=== PATIENT | male | born 1955 | race Hispanic/Latino ===

== ENCOUNTER → 2021-03-14 | Outpatient (CLI) | payer OTHER ==
[~2021-03-14] MED LIST: ATOR10 PO; ATOR20TA65 PO; HYDR1POW19 MC; LISI40TA9 PO; METF-444 PO; METF-445 PO; METO25TA3 PO; NITR0.4T SL; RANI150T7 PO; SERT-439 PO; TAMS0.4C32 PO
== END | disposition home or self-care (01) ==
LOC: RAH 12:16
PROVIDERS: ATTEND Nurse Practitioner Family
DX: M47.27 Other spondylosis with radiculopathy, lumbosacral region (principal); E88.2 Lipomatosis, not elsewhere classified
CPT/HCPCS: 72148

== ENCOUNTER 2023-06-21 13:12 | Emergency (ER) | payer OTHER, MEDICARE ==
[~2023-06-21] VITALS: Ht 167.6 cm; Wt 116.6 kg
[2023-06-21 13:34] LABS: BASOPHILS # (AUTO) 0.07 K/uL (0.00-0.20); BASOPHILS % (AUTO) 0.8 % (0.0-5.0); EOSINOPHILS # (AUTO) 0.41 K/uL (0.00-0.70); EOSINOPHILS % (AUTO) 4.4 % (0.0-8.0); HEMATOCRIT 40.3 % (42-54); IMMATURE GRANULOCYTE ABSOLUTE 0.03 K/uL (0-1); LYMPHOCYTES # (AUTO) 2.1 K/uL (1.0-4.8); LYMPHOCYTES % (AUTO) 22.2 % (21.0-51.0); MEAN CORPUSCULAR HEMOGLOBIN 29.3 pg (27.0-33.0); MEAN CORPUSCULAR HGB CONC 33.3 g/dL (32.0-36.0); MEAN CORPUSCULAR VOLUME 88.2 fL (79-99); MONOCYTES # (AUTO) 0.9 K/uL (0.1-1.0); MONOCYTES % (AUTO) 9.9 % (3.0-13.0); NEUTROPHILS # (AUTO) 5.8 K/uL (1.8-7.7); NEUTROPHILS % (AUTO) 62.4 % (40.0-77.0); PLATELET COUNT (AUTO) 187 K/uL (130-400); RED BLOOD CELL COUNT(AUTO) 4.57 MIL/uL (4.50-6.20); RED CELL DISTRIBUTION WIDTH 12.5 % (11.0-15.5); WHITE BLOOD COUNT (AUTO) 9.2 K/uL (4.8-10.8)
[2023-06-21 13:42] LABS: CREATININE 1.1 mg/dL (0.5-1.5); POTASSIUM 4.4 mmol/L (3.5-5.1)
[2023-06-21 13:47] LABS: ALBUMIN 3.5 g/dL (3.5-5.0); BILIRUBIN,TOTAL 0.5 mg/dL (0.2-1.0); TOTAL PROTEIN, SERUM 7.2 g/dL (6.0-8.3)
[2023-06-21 14:10] LABS: APPEARANCE,URINE CLEAR (CLEAR); BILIRUBIN,URINE NEGATIVE (NEGATIVE); COLOR,URINE YELLOW (YELLOW); GLUCOSE, URINE (UA) NEGATIVE (NEGATIVE); KETONES,URINE NEGATIVE (NEGATIVE); LEUKOCYTE ESTERASE ,URINE NEGATIVE Leu/uL (NEGATIVE); NITRATE,URINE NEGATIVE (NEGATIVE); OCCULT BLOOD,URINE NEGATIVE (NEGATIVE); PH,URINE 5.5 (5.0-8.0); PROTEIN,URINE NEGATIVE (NEGATIVE); UROBILINOGEN,URINE 0.2 mg/dL (0.2-1.0)
[2023-06-21 14:11] LABS: ADD UA MICROSCOPIC NO
[2023-06-21] MEDS ORDERED: CEFTRIAXONE 1G VIAL IVPB ONE (14:30)
[2023-06-21] MEDS ORDERED: DOXY-469 PO (14:32)
[2023-06-21 14:55] VITALS: BP 143/79; PULSE 78; RESP 18; O2SAT 98
== END 2023-06-21 15:33 | disposition home or self-care (01) ==
LOC: EDH 13:12
DX: N45.1 Epididymitis (principal); I10 Essential (primary) hypertension; E11.9 Type 2 diabetes mellitus without complications; E78.00 Pure hypercholesterolemia, unspecified; N43.3 Hydrocele, unspecified; Z79.899 Other long term (current) drug therapy; Z90.49 Acquired absence of other specified parts of digestive tract
CPT/HCPCS: 99285; 96365; 80053; 85025; 83605; 81003; 36415; 76870; J0696

== ENCOUNTER → 2024-05-06 | Outpatient (CLI) | payer OTHER, MEDICARE ==
[~2024-05-06] MED LIST changes: +DOXY100C61 PO
== END | disposition home or self-care (01) ==
LOC: RAH 10:42
PROVIDERS: ATTEND Internal Medicine
DX: R10.10 Upper abdominal pain, unspecified (principal); R14.0 Abdominal distension (gaseous); R11.0 Nausea
CPT/HCPCS: 78264; A9541

== ENCOUNTER 2025-05-31 13:27 | Emergency (ER) | payer OTHER, MEDICAID ==
[~2025-05-31] VITALS: Ht 170.2 cm; Wt 126.1 kg
[~2025-05-31 13:27] MED LIST changes: +DOXY-466 PO; -DOXY100C61 PO; +LISI40TA15 PO; -LISI40TA9 PO
[2025-05-31] MEDS: 0.9%NACL 1000ML 1,000 ML IV ONE (13:54)
[2025-05-31 14:10] LABS: IMMATURE GRANULOCYTE ABSOLUTE 0.07 K/uL (0-1); NUCLEATED RED BLOOD CELLS 0.0 % (0.0-0.19); PLATELET COUNT (AUTO) 178 K/uL (130-400); RED BLOOD CELL COUNT(AUTO) 4.17 MIL/uL (4.50-6.20); RED CELL DISTRIBUTION WIDTH 12.8 % (11.0-15.5); WHITE BLOOD COUNT (AUTO) 8.8 K/uL (4.8-10.8)
[2025-05-31 14:22] LABS: CREATININE 1.0 mg/dL (0.5-1.3); GLOMERULAR FILTR. RATE CALC 81.0 mL/min (>90); GLUCOSE,RANDOM 93.0 mg/dL (70-105); SODIUM SERUM 135.0 mmol/L (136-145); UREA NITROGEN, BLOOD 24.0 mg/dL (7-18)
[2025-05-31] MEDS ORDERED: IOHEXOL-350 75 ML VIAL IV ONE (14:31)
--- NOTE | 2025-05-31 15:18 | ERN ---
ED Note History of Present Illness Stated Complaint: RECTAL BLEEDING Chief Complaint: Rectal Bleed Time Seen by MD: 13:31 Time Seen by Midlevel: 13:31 Dictation: 70-year-old male who presents to the ED for evaluation rectal pain. Reports he has a history of hemorrhoids for the past few months has been seeing a specialist. Reports he had a colonoscopy done few months ago was told he had polyps that were removed and will has been given symptomatic treatment for the hemorrhoids. He reports they prescribed creams and has been helping and continues with pain. Reports some rectal bleeding occasionally getting bowel movements when he wipes. Allergies: Uncoded Allergies: NKDA (Allergy, Unknown, 06/18/14) NKDA Home Meds Active Scripts Doxycycline Monohydrate (Doxycycline Monohydrate) 100 Mg Capsule, 100 MG PO BID for 10 Days, #20 CAP Prov:MITZI GELLER MD 06/21/23 Reported Medications Atorvastatin Calcium (Atorvastatin Calcium) 20 Mg Tablet, 20 MG PO HS, TAB 11/08/16 Lisinopril (Lisinopril) 40 Mg Tablet, 40 MG PO DAILY, TAB 11/08/16 Sertraline HCl (Sertraline HCl) 50 Mg Tablet, 50 MG PO DAILY, TAB 11/08/16 Metoprolol Succinate (Toprol Xl) 25 Mg Tab.er.24h, 25 MG PO BID, TAB 11/08/16 Metformin HCl (Metformin HCl) 850 Mg Tablet, 850 MG PO TIDMEALS, TAB 11/08/16 Ranitidine HCl (Ranitidine HCl) 150 Mg Tablet, 150 MG PO DAILY, #1 TAB 06/18/14 Nitroglycerin (Nitrostat) 0.4 Mg Tab.subl, 0.4 MG SL STAT PRN for CHEST PAIN, #1 TAB.SL 06/18/14 Metformin HCl (Metformin HCl) 500 Mg Tablet, 500 MG PO AM, TAB 06/18/14 Tamsulosin HCl (Tamsulosin HCl) 0.4 Mg Cap.er.24h, 0.4 MG PO AM, CAPSULE. 06/18/14 Hydrochlorothiazide (Hydrochlorothiazide) 25 Gm Powder, 25 GM MC DAILY, APPL 06/18/14 Atorvastatin Calcium (LIPITOR) 10 Mg Tablet, 10 MG PO HS, TAB 06/18/14 Lisinopril (Lisinopril) 40 Mg Tablet, 40 MG PO DAILY, TAB 06/18/14 Metoprolol Succinate (Toprol Xl) 25 Mg Tab.er.24h, 25 MG PO DAILY, TAB 06/18/14 Past Medical History Past Medical History: Diabetes-Type II, High Cholesterol, Hypertension Surgical History: Cholecystectomy RN Note Reviewed/Agreed w/PFSH: Yes Review of System Dictation Constitutional: Negative for fever,chills, and weight loss Eyes: Negative for injury, pain,redness, and discharge ENT: Negative for injury,pain or swelling Cardiovascular: Negative for chest pain, palpitations, and edema Respiratory: Negative for shortness of breath, cough, and wheezing, Abdomen/GI: Negative for abdominal pain, nausea, vomiting, diarrhea, and constipation Back: Negative for injury and pain : Negative for injury, bleeding and discharge MS/Extremity: Negative for injury and deformity Skin: Negative for rash, and discoloration Neuro: Negative for headache, weakness, numbness, tingling, and seizure Psych: Negative for suicide ideation, homicidal ideation, and hallucinations Review of Systems: was completed Initial Vital Sign VS Vital Signs Date Time Temp Pulse Resp B/P (MAP) Pulse Ox O2 Delivery O2 Flow Rate FiO2 05/31/25 13:28 98.2 63 18 158/68 98 Room Air 05/31/25 14:12 0 21 Physical Exam Dictation General: awake, alert, NAD Head/Face: Normocephalic, atraumatic Eyes: PERRL, EOMI, vision at baseline ENT: oral cavity clear, TMs clear, no signs of infection Neck: Trachea midline, supple, no nuchal rigidity Cardiovascular: RRR, normal S1/S2, No MRGs, no JVD Respiratory: CTAB, no respiratory distress, No rales or wheezes Abdomen: Soft, non-tender, non-distended, normal bowel sounds, no guarding or rebound.external hemorrhoids noted, no anal fissure, no thrombosed hemorrhoid Skin: Warm, dry, normal turgor, no rash MS/Extremity: Pulses equal, no cyanosis, neurovascular intact, FROM Neuro: COAx4, GCS 15, strength 5/5, CN 2-12 intact, normal cerebellar exam, normal gait, Psych: Normal behavior, mood, and affect normal Results (Laboratory/Radiology) Laboratory/Radiology Laboratory Tests Test 05/31/25 14:02 05/31/25 15:48 White Blood Count 8.8 K/uL (4.8-10.8) Red Blood Count 4.17 MIL/uL (4.50-6.20) L Hemoglobin 12.9 g/dL (14.0-18.0) L Hematocrit 36.0 % (42-54) L Mean Corpuscular Volume 86.3 fL (79-99) Mean Corpuscular Hemoglobin 30.9 pg (27.0-33.0) Mean Corpuscular Hemoglobin Concent 35.8 g/dL (32.0-36.0) Red Cell Distribution Width 12.8 % (11.0-15.5) Platelet Count 178 K/uL (130-400) Mean Platelet Volume 10.4 fL (7.5-10.5) Immature Granulocyte % (Auto) 0.8 % (0-1) Neutrophils (%) (Auto) 62.1 % (40.0-77.0) Lymphocytes (%) (Auto) 24.3 % (21.0-51.0) Monocytes (%) (Auto) 10.0 % (3.0-13.0) Eosinophils (%) (Auto) 2.6 % (0.0-8.0) Basophils (%) (Auto) 0.2 % (0.0-5.0) Neutrophils # (Auto) 5.4 K/uL (1.8-7.7) Lymphocytes # (Auto) 2.1 K/uL (1.0-4.8) Monocytes # (Auto) 0.9 K/uL (0.1-1.0) Eosinophils # (Auto) 0.23 K/uL (0.00-0.70) Basophils # (Auto) 0.02 K/uL (0.00-0.20) Absolute Immature Granulocyte (auto 0.07 K/uL (0-1) Nucleated Red Blood Cells 0.0 % (0.0-0.19) Sodium Level 135 mmol/L (136-145) L Potassium Level 4.7 mmol/L (3.5-5.1) Chloride Level 102 mmol/L (101-111) Carbon Dioxide Level 26 mmol/L (21-32) Blood Urea Nitrogen 24 mg/dL (7-18) H Creatinine 1.0 mg/dL (0.5-1.3) Glomerular Filtration Rate Calc 81 mL/min (>90) Random Glucose 93 mg/dL (70-105) Total Calcium 8.5 mg/dL (8.5-10.1) Lipase 100 U/L (16-77) H Urine Color LIGHT-YELLOW (YELLOW) Urine Appearance CLEAR (CLEAR) Urine pH 6.0 (5.0-8.0) Urine Specific Williams 1.035 (1.001-1.031) Urine Protein NEGATIVE mg/dL (NEGATIVE) Urine Glucose (UA) NEGATIVE mg/dL (NEGATIVE) Urine Ketones NEGATIVE mg/dL (NEGATIVE) Urine Occult Blood NEGATIVE (NEGATIVE) Urine Nitrate NEGATIVE (NEGATIVE) Urine Bilirubin NEGATIVE mg/dL (NEGATIVE) Urine Urobilinogen 0.2 mg/dL (0.2-1.0) Urine Leukocyte Esterase NEGATIVE Kimmie/uL Labs Reviewed?: Yes CT Scan Comment: PATIENT: DASH MIMS MR#: [id number] : 1955 SEX: M AGE: 70 LOCATION: [facility] ORDER [id number] STATUS: [facility] REPORT#: [id number] SERVICE [id number] REASON: Abdominal Pain ORDERING PHYSICIAN: YASMINE KUMAR PROCEDURE: ABD PEL W - CT ABDOMEN/PELVIS W/CONTRAST EXAM: CT Abdomen and Pelvis with IV contrast CLINICAL HISTORY: Abdominal Pain TECHNIQUE: Axial computed tomography images of the abdomen and pelvis with intravenous contrast. CT scan performed according to ALARA. Automated exposure control used during exam. CONTRAST: with intravenous contrast. COMPARISON: Radiograph dated June 28, 2012 FINDINGS: Lung bases are clear. Cirrhotic hepatic morphology. Prior cholecystectomy. No focal hepatic abnormality or intrahepatic biliary ductal dilatation. Bilateral adrenal glands, and pancreas are unremarkable. There is mild bilateral perinephric fat stranding that may reflect renal parenchymal disease, recommend correlation with laboratory parameters. There is no renal calculus or hydronephrosis. Splenic calcifications are in keeping with a prior granulomatous infection. Colonic diverticulosis without evidence for diverticulitis. Bowel loops are normal in caliber without evidence of obstruction, ileus, or obvious bowel wall thickening. The appendix is normal. Bladder is underdistended; however, is otherwise unremarkable. Prostate and seminal vesicles are normal in caliber. There is no ascites or lymphadenopathy. Opacified abdominal and pelvic vessels are patent. Atherosclerotic vascular calcifications are noted. Incidental lipoma within the left hip adductor musculature. Mild edema within the retrospinal soft tissues at the lumbar level. There is no acute or suspicious osseous abnormality. IMPRESSION: No acute intra-abdominal or pelvic abnormality. Please above for details and recommendations. /[place] DICTATED BY: ALYSSA JACOBSEN Jr., MD DATE: 05/31/251640 ELECTRONICALLY SIGNED BY: ALYSSA JACOBSEN Jr., MD DATE: 05/31/251640 ED Course ED Course Orders Procedure Category Date Status Time Cbc With Differential LAB 05/31/25 Complete 13:36 Urinalysis Profile LAB 05/31/25 Complete 13:36 Occult Blood Stool LAB 05/31/25 Logged Single Only 13:36 Ct Abdomen/Pelvis CT 05/31/25 Resulted W/Contrast 13:36 0.9%Nacl 1000ml (Ns PHA 05/31/25 Complete 1000ml) 14:00 Morphine 4mg Syg PHA 05/31/25 Complete (Morphine 4mg Syg) 14:00 Ondansetron 4mg Inj PHA 05/31/25 Complete (Zofran 4mg Inj) 14:00 Lipase LAB 05/31/25 Complete 13:36 Basic Metabolic Panel LAB 05/31/25 Complete 13:36 Iohexol (Omnipaque) PHA 05/31/25 Complete 14:31 Current Medications Medications (Trade) Dose Ordered Sig/Sven Route PRN Reason Start Time Stop Time Status Last Admin Dose Admin Iohexol (Omnipaque) 75 ml STK-MED ONCE IV 05/31/25 14:31 05/31/25 14:34 DC Morphine Sulfate (morPHINE 4MG SYG) 4 mg ONCE ONCE IVP 05/31/25 14:00 05/31/25 14:01 DC 05/31/25 14:12 Ondansetron HCl (zoFRAN 4MG INJ) 4 mg ONCE ONCE IVP 05/31/25 14:00 05/31/25 14:01 DC 05/31/25 13:54 Sodium Chloride 1,000 ml @ 0 mls/hr ONCE ONCE IV 05/31/25 14:00 05/31/25 14:01 DC 05/31/25 13:54 Vital Signs Date Time Temp Pulse Resp B/P (MAP) Pulse Ox O2 Delivery O2 Flow Rate FiO2 05/31/25 14:12 98.2 60 20 162/72 97 Room Air* 0 21 05/31/25 13:28 98.2 63 18 158/68 98 Room Air Medical Decision Making MDM MDM: DIFFERENTIAL DIAGNOSIS: EXTERNAL HEMORRHOIDS, ACUTE DIVERTICULOSIS, DI VERTICULITIS, ANEMIA RATIONALE: TESTS CONSIDERED AND ORDERED SECONDARY TO SHARED DECISION MAKING INCLUDE: PREVIOUS OUTSIDE RECORDS REVIEWED: OLD ER VISITS. MEDICATIONS-PER MEDICATION RECONCILIATION NEED FOR HOSPITALIZATION: PATIENT DOES NOT MEET CRITERIA FOR HOSPITALIZATION. NEED FOR EMERGENCY MAJOR/MINOR SURGERY: NO PATIENT'S PRIOR EXTERNAL MEDICAL RECORDS FROM OTHER ER VISITS WERE REVIEWED BY ME INDICATED. PRIOR TESTING AND RESULTS FROM PREVIOUS VISITS WERE REVIEWED. PRIOR TESTS WERE TAKEN INTO ACCOUNT WITH MEDICAL DECISION MAKING AND RESOURCE UTILIZATION, INDEPENDENT HISTORIAN/HISTORIANS WERE USED TO OBTAIN COMPLETE MEDICAL HISTORY. I INDEPENDENTLY INTERPRETED THE TEST THAT WERE PERFORMED, RESULTS WERE REVIEWED BY ME AND CONSIDERED FINDINGS ON RADIOLOGY IF ORDERED. MEDICAL MANAGEMENT AND EXAMINATION INTERPRETATION DISCUSSIONS WERE HAD BY ME WITH OTHER QUALIFIED HEALTHCARE PROFESSIONALS INDICATED FOR THE PATIENT'S CARE. PATIENT WITH A EXTERNAL HEMORRHOIDS, NONTHROMBOSED. NO ANAL FISSURE, OR ABS CESS. HEMOGLOBIN 12.9. NO ELECTROLYTE ABNORMALITIES. CT SCAN ABDOMEN AND PELVIS WITH CONTRAST SHOWS COLONIC DIVERTICULOSIS WITH PATIENT AND DAUGHTER STATE THEY ARE ALREADY AWARE OF. DID EDUCATED ON POSSIBLE CIRRHOTIC LIVER MORPHOLOGY AND RECOMMENDED FOLLOW UP WITH PCP. PATIENT AND DAUGHTER DENY ALCOHOL USE. CT SCAN DOES NOT SHOW ANY EVIDENCE OF DIVERTICULITIS. OTHERWISE NORMAL CT SCAN ABDOMEN AND PELVIS. PATIENT WILL BE DISCHARGED HOME RECOMMENDED FOLLOW UP WITH HIS [employer]ER AND EDUCATED SYMPTOMATIC TREATMENT FOR EXTERNAL HEMORRHOIDS. RETURN PRECAUTIONS DISCUSSED WITH PATIENT AND FAMILY MEMBER. THEY VERBALIZED UNDERSTANDING, AGREED WITH PLAN, AND ALL QUESTIONS WERE ANSWERED AT THIS TIME. DX & DISP Disposition: Discharge Departure Impression: Primary Impression: Hemorrhoids Additional Impression: Diverticula of colon Condition: Stable Additional Instructions: DISCHARGE HOME. REST. FOLLOW UP WITH PRIMARY CARE IN 24 HOURS AND/OR YOUR [employer] FOR REPEAT COLONOSCOPY AND FOLLOW UP RETURN TO THE ER FOR ANY ACUTE CHANGE. PATIENT WAS ALSO ADVISED TO FOLLOW-UP WITH PRIMARY CARE PHYSICIAN IN 1 TO 2 DAYS FOR CONTINUED MONITORING. ALL INSTRUCTIONS WERE GIVEN TO LAYMANS TERM AND PATIENT AGREEABLE TO DISCHARGE AND PROPER FOLLOW-UP. Referrals: JENA TORRES (PCP) I have reviewed the case, and I agree with, Diagnosis and Plan YASMINE KUMAR May 31, 2025 15:18
--- NOTE | 2025-05-31 15:42 | HMCIMG ---
EXAM: CT Abdomen and Pelvis with IV contrast CLINICAL HISTORY: Abdominal Pain TECHNIQUE: Axial computed tomography images of the abdomen and pelvis with intravenous contrast. CT scan performed according to ALARA. Automated exposure control used during exam. CONTRAST: with intravenous contrast. COMPARISON: Radiograph dated June 28, 2012 FINDINGS: Lung bases are clear. Cirrhotic hepatic morphology. Prior cholecystectomy. No focal hepatic abnormality or intrahepatic biliary ductal dilatation. Bilateral adrenal glands, and pancreas are unremarkable. There is mild bilateral perinephric fat stranding that may reflect renal parenchymal disease, recommend correlation with laboratory parameters. There is no renal calculus or hydronephrosis. Splenic calcifications are in keeping with a prior granulomatous infection. Colonic diverticulosis without evidence for diverticulitis. Bowel loops are normal in caliber without evidence of obstruction, ileus, or obvious bowel wall thickening. The appendix is normal. Bladder is underdistended; however, is otherwise unremarkable. Prostate and seminal vesicles are normal in caliber. There is no ascites or lymphadenopathy. Opacified abdominal and pelvic vessels are patent. Atherosclerotic vascular calcifications are noted. Incidental lipoma within the left hip adductor musculature. Mild edema within the retrospinal soft tissues at the lumbar level. There is no acute or suspicious osseous abnormality. IMPRESSION: No acute intra-abdominal or pelvic abnormality. Please above for details and recommendations. /[place]
[2025-05-31 15:58] LABS: APPEARANCE,URINE CLEAR (CLEAR); GLUCOSE, URINE (UA) NEGATIVE (NEGATIVE); LEUKOCYTE ESTERASE ,URINE NEGATIVE Leu/uL (NEGATIVE); NITRATE,URINE NEGATIVE (NEGATIVE); OCCULT BLOOD,URINE NEGATIVE (NEGATIVE)
[2025-05-31 15:59] LABS: ADD UA MICROSCOPIC NO
[2025-05-31 16:20] VITALS: BP 157/68; PULSE 66; RESP 18; TEMP 98.2; O2SAT 98
== END 2025-05-31 16:33 | disposition home or self-care (01) ==
LOC: EDH 13:27
DX: K64.9 Unspecified hemorrhoids (principal); K57.30 Diverticulosis of large intestine without perforation or abscess without bleeding; E11.9 Type 2 diabetes mellitus without complications; E78.00 Pure hypercholesterolemia, unspecified; I10 Essential (primary) hypertension; Z79.899 Other long term (current) drug therapy; Z90.49 Acquired absence of other specified parts of digestive tract
CPT/HCPCS: 99285; 74177; 96374; 96375; 80048; 83690; 85025; 81003; 36415; J2405; J2270; Q9967

== ENCOUNTER 2025-07-02 08:29 | Observation (INO) | payer OTHER, MEDICAID ==
[~2025-07-02] VITALS: Ht 170.2 cm; Wt 124.7 kg
--- NOTE | 2025-07-02 08:38 | EKG ---
[facility] Test Date: 2025-07-02 Test Time: 08:30:07 Pat Name: DASH MIMS Department: EDH Room: ED Gender: M Emt/Paramedic: [id number] : 1955 Requested By: VIC RODRIGUEZ Order Number: [id number] Reading MD: Brennan Mora Measurements Intervals [place] Rate: 79 P: 40 ND: 173 QRS: -49 QRSD: 86 T: 46 QT: 375 QTc: 431 Interpretive Statements Sinus rhythm Inferior infarct, old Compared to ECG 11/08/2016 19:30:19 No significant changes Electronically Signed On 07-02-2025 13:40:36 CDT by Brennan Mora Please click the below link to view image of tracing.
[2025-07-02 08:52] LABS: IMMATURE GRANULOCYTE ABSOLUTE 0.04 K/uL (0-1); NUCLEATED RED BLOOD CELLS 0.0 % (0.0-0.19); PLATELET COUNT (AUTO) 214 K/uL (130-400); RED BLOOD CELL COUNT(AUTO) 4.23 MIL/uL (4.50-6.20); RED CELL DISTRIBUTION WIDTH 12.8 % (11.0-15.5); WHITE BLOOD COUNT (AUTO) 9.1 K/uL (4.8-10.8)
[2025-07-02 09:02] LABS: APPEARANCE,URINE CLOUDY (CLEAR); GLUCOSE, URINE (UA) 50 mg/dL (NEGATIVE); LEUKOCYTE ESTERASE ,URINE 25 Leu/uL (NEGATIVE); NITRATE,URINE NEGATIVE (NEGATIVE); OCCULT BLOOD,URINE NEGATIVE (NEGATIVE)
[2025-07-02 09:04] LABS: ADD UA MICROSCOPIC YES
[2025-07-02 09:05] LABS: CREATININE 1.2 mg/dL (0.5-1.3); GLOMERULAR FILTR. RATE CALC 65.0 mL/min (>90); GLUCOSE,RANDOM 193.0 mg/dL (70-105); SODIUM SERUM 135.0 mmol/L (136-145); UREA NITROGEN, BLOOD 18.0 mg/dL (7-18)
[2025-07-02 09:11] LABS: ASPARTATE AMINOTRANSFERASE 34.0 U/L (10-37); CREATINE KINASE, TOTAL 84.0 U/L (21-232); TOTAL PROTEIN, SERUM 7.1 g/dL (6.0-8.3)
[2025-07-02 09:16] LABS: SQUAMOUS EPITHELIAL CELL,UR RARE /HPF (0-2)
--- NOTE | 2025-07-02 10:54 | HMCIMG ---
EXAM: CR Chest, 1 View. CLINICAL HISTORY: cp COMPARISON: 11/08/16 9:08 EST CR - CHEST 1VW FINDINGS: LUNGS: There is no mass, infiltrate, or acute pulmonary abnormality. PLEURAL SPACES: No pleural effusion or pneumothorax. MEDIASTINUM: The cardiomediastinal silhouette is within normal limits. BONES: No aggressive appearing osseous lesion seen. IMPRESSION: No acute cardiopulmonary pathology is evident. /[place]
[2025-07-02] MEDS: ASPIRIN 325MG TAB PO ONE (11:22)
[2025-07-02] MEDS: NITROGLYCERIN 1GM OINT 1 INCH/1GM TD ONE (11:22)
--- NOTE | 2025-07-02 11:24 | ERN ---
ED Note History of Present Illness Stated Complaint: CHEST PAIN / BACK PAIN Chief Complaint: Chest Pain Time Seen by MD: 08:34 Dictation: 70-year-old male presenting to the emergency department with intermittent chest pain since last night history of hypertension and diabetes does see heart doctor unknown his exact cardiac history. Does report he still has chest discomfort 01/26 Allergies: Coded Allergies: No Known Drug Allergies (Unverified Allergy, Unknown, 07/02/25) Uncoded Allergies: NKDA (Allergy, Unknown, 06/18/14) NKDA Home Meds Active Scripts Doxycycline Monohydrate (Doxycycline Monohydrate) 100 Mg Capsule, 100 MG PO BID for 10 Days, #20 CAP Prov:MITZI GELLER MD 06/21/23 Reported Medications Atorvastatin Calcium (Atorvastatin Calcium) 20 Mg Tablet, 20 MG PO HS, TAB 11/08/16 Lisinopril (Lisinopril) 40 Mg Tablet, 40 MG PO DAILY, TAB 11/08/16 Sertraline HCl (Sertraline HCl) 50 Mg Tablet, 50 MG PO DAILY, TAB 11/08/16 Metoprolol Succinate (Toprol Xl) 25 Mg Tab.er.24h, 25 MG PO BID, TAB 11/08/16 Metformin HCl (Metformin HCl) 850 Mg Tablet, 850 MG PO TIDMEALS, TAB 11/08/16 Ranitidine HCl (Ranitidine HCl) 150 Mg Tablet, 150 MG PO DAILY, #1 TAB 06/18/14 Nitroglycerin (Nitrostat) 0.4 Mg Tab.subl, 0.4 MG SL STAT PRN for CHEST PAIN, #1 TAB.SL 06/18/14 Metformin HCl (Metformin HCl) 500 Mg Tablet, 500 MG PO AM, TAB 06/18/14 Tamsulosin HCl (Tamsulosin HCl) 0.4 Mg Cap.er.24h, 0.4 MG PO AM, CAPSULE.DR 06/18/14 Hydrochlorothiazide (Hydrochlorothiazide) 25 Gm Powder, 25 GM MC DAILY, APPL 06/18/14 Atorvastatin Calcium (LIPITOR) 10 Mg Tablet, 10 MG PO HS, TAB 06/18/14 Lisinopril (Lisinopril) 40 Mg Tablet, 40 MG PO DAILY, TAB 06/18/14 Metoprolol Succinate (Toprol Xl) 25 Mg Tab.er.24h, 25 MG PO DAILY, TAB 06/18/14 Past Medical History Past Medical History: DVT, High Cholesterol, Hypertension, Renal Disese Surgical History: Cholecystectomy Surgical History Other: RECTAL FISSURE Review of System Dictation Constitutional: Negative for fever,chills, and weight loss Eyes: Negative for injury, pain,redness, and discharge ENT: Negative for injury,pain or swelling Cardiovascular per HPI Respiratory: Negative for shortness of breath, cough, and wheezing, Abdomen/GI: Negative for abdominal pain, nausea, vomiting, diarrhea, and constipation Back: Negative for injury and pain : Negative for injury, bleeding and discharge MS/Extremity: Negative for injury and deformity Skin: Negative for rash, and discoloration Neuro: Negative for headache, weakness, numbness, tingling, and seizure Psych: Negative for suicide ideation, homicidal ideation, and hallucinations Initial Vital Sign VS Vital Signs Date Time Temp Pulse Resp B/P (MAP) Pulse Ox O2 Delivery O2 Flow Rate FiO2 07/02/25 08:33 97.9 83 18 137/81 96 Room Air 0 07/02/25 08:51 21 Physical Exam Dictation General: awake, alert, NAD Head/Face: Normocephalic, atraumatic Eyes: PERRL, EOMI, vision at baseline ENT: oral cavity clear, TMs clear, no signs of infection Neck: Trachea midline, supple, no nuchal rigidity Cardiovascular: RRR, normal S1/S2, No MRGs, no JVD Respiratory: CTAB, no respiratory distress, No rales or wheezes Abdomen: Soft, non-tender, non-distended, normal bowel sounds, no guarding or rebound. Skin: Warm, dry, normal turgor, no rash MS/Extremity: Pulses equal, no cyanosis, neurovascular intact, FROM Neuro: COAx4, GCS 15, strength 5/5, CN 2-12 intact, normal cerebellar exam, normal gait, Psych: Normal behavior, mood, and affect normal Results (Laboratory/Radiology) Laboratory/Radiology Laboratory Tests Test 07/02/25 08:40 07/02/25 08:46 Urine Color YELLOW (YELLOW) Urine Appearance CLOUDY (CLEAR) H Urine pH 5.5 (5.0-8.0) Urine Specific Nora 1.019 (1.001-1.031) Urine Protein 70 mg/dL (NEGATIVE) H Urine Glucose (UA) 50 mg/dL (NEGATIVE) H Urine Ketones NEGATIVE mg/dL (NEGATIVE) Urine Occult Blood NEGATIVE (NEGATIVE) Urine Nitrate NEGATIVE (NEGATIVE) Urine Bilirubin NEGATIVE mg/dL (NEGATIVE) Urine Urobilinogen 0.2 mg/dL (0.2-1.0) Urine Leukocyte Esterase 25 Kimmie/uL (NEGATIVE) H Urine RBC 0-1 /HPF (0-1) Urine WBC 2-5 /HPF (0-1) H Urine Squamous Epithelial Cells RARE /HPF (0-2) Urine Bacteria None /HPF (None Seen) Urine Granular Casts (Auto) 2-5 /LPF (None Seen) H White Blood Count 9.1 K/uL (4.8-10.8) Red Blood Count 4.23 MIL/uL (4.50-6.20) L Hemoglobin 12.7 g/dL (14.0-18.0) L Hematocrit 37.0 % (42-54) L Mean Corpuscular Volume 87.5 fL (79-99) Mean Corpuscular Hemoglobin 30.0 pg (27.0-33.0) Mean Corpuscular Hemoglobin Concent 34.3 g/dL (32.0-36.0) Red Cell Distribution Width 12.8 % (11.0-15.5) Platelet Count 214 K/uL (130-400) Mean Platelet Volume 10.1 fL (7.5-10.5) Immature Granulocyte % (Auto) 0.4 % (0-1) Neutrophils (%) (Auto) 66.8 % (40.0-77.0) Lymphocytes (%) (Auto) 21.7 % (21.0-51.0) Monocytes (%) (Auto) 8.3 % (3.0-13.0) Eosinophils (%) (Auto) 2.1 % (0.0-8.0) Basophils (%) (Auto) 0.7 % (0.0-5.0) Neutrophils # (Auto) 6.1 K/uL (1.8-7.7) Lymphocytes # (Auto) 2.0 K/uL (1.0-4.8) Monocytes # (Auto) 0.8 K/uL (0.1-1.0) Eosinophils # (Auto) 0.19 K/uL (0.00-0.70) Basophils # (Auto) 0.06 K/uL (0.00-0.20) Absolute Immature Granulocyte (auto 0.04 K/uL (0-1) Nucleated Red Blood Cells 0.0 % (0.0-0.19) Sodium Level 135 mmol/L (136-145) L Potassium Level 4.7 mmol/L (3.5-5.1) Chloride Level 102 mmol/L (101-111) Carbon Dioxide Level 26 mmol/L (21-32) Blood Urea Nitrogen 18 mg/dL (7-18) Creatinine 1.2 mg/dL (0.5-1.3) Glomerular Filtration Rate Calc 65 mL/min (>90) Random Glucose 193 mg/dL (70-105) H Total Calcium 8.7 mg/dL (8.5-10.1) Total Bilirubin 0.3 mg/dL (0.2-1.0) Direct Bilirubin 0.1 mg/dL (0.0-0.3) Aspartate Amino Transf (AST/SGOT) 34 U/L (10-37) Alanine Aminotransferase (ALT/SGPT) 51 U/L (12-78) Alkaline Phosphatase 151 U/L (50-136) H Total Creatine Kinase 84 U/L (21-232) Troponin I High Sensitivity 6 ng/L (4-75) B-Type Natriuretic Peptide 67 pg/mL (0-100) Total Protein 7.1 g/dL (6.0-8.3) Albumin 3.1 g/dL (3.5-5.0) L Labs Reviewed?: Yes EKG Comment: Heart rate 83 normal sinus rhythm normal intervals no STEMI or STEMI equivalent ED Course ED Course Orders Procedure Category Date Status Time B-Type Natriuretic LAB 07/02/25 Complete Peptide 08:35 12 Lead Ekg Tracing- EKG 07/02/25 Complete Technical 08:35 Basic Metabolic Panel LAB 07/02/25 Complete 08:35 Cbc With Differential LAB 07/02/25 Complete 08:35 Hepatic Function Panel LAB 07/02/25 Complete 08:35 Creatine Kinase, Total LAB 07/02/25 Complete 08:35 Troponin I High LAB 07/02/25 Complete Sensitivity 08:35 Chest 1vw RAD 07/02/25 Resulted 08:35 Vital Signs Per CPOE 07/02/25 Transmitted Routine 08:37 Oxygen By Nc/Pulse Ox CPOE 07/02/25 Transmitted 08:37 Maintain Iv CPOE 07/02/25 Transmitted 08:37 Iv Insertion CPOE 07/02/25 Transmitted 08:37 Cardiac Monitoring CPOE 07/02/25 Transmitted 08:37 Pulse Oximetry With CPOE 07/02/25 Transmitted Vs And Prn 08:37 Activity: Br W/Brp CPOE 07/02/25 Transmitted With Assist 08:37 Urinalysis Profile LAB 07/02/25 Complete 08:37 Aspirin 325mg Tab PHA 07/02/25 In Process (Aspirin 325mg Tab) 11:30 Nitroglycerin 1gm PHA 07/02/25 In Process Oint (Nitroglycerin 1g 11:30 Current Medications Medications (Trade) Dose Ordered Sig/Sven Route PRN Reason Start Time Stop Time Status Last Admin Dose Admin Aspirin (Aspirin 325mg Tab) 325 mg ONCE ONCE PO 07/02/25 11:30 07/02/25 11:31 Nitroglycerin (Nitroglycerin 1gm Oint) 1 inch ONCE ONCE TD 07/02/25 11:30 07/02/25 11:31 Vital Signs Date Time Temp Pulse Resp B/P (MAP) Pulse Ox O2 Delivery O2 Flow Rate FiO2 07/02/25 10:16 97.9 71 10 126/70 97 Room Air* 0 21 07/02/25 08:51 97.9 78 14 145/67 97 Room Air* 0 21 07/02/25 08:33 97.9 83 18 137/81 96 Room Air 0 Medical Decision Making MDM MDM: Differential diagnosis: Rationale: Tests considered and ordered secondary to shared decision making include: labs, ECG and radiology Previous outside records reviewed: Old ER visits. Risk of complication and/or morbidity or mortality of patient management: None Medications-Per medication reconciliation Need for hospitalization: Patient does meet criteria for hospitalization. Need for emergency major/minor surgery: No There are no social concerns with this patient. Prescription drug management Prescriptions will include symptomatic care Patient's prior external medical records from other ER visits were reviewed by me as indicated. Prior testing and results from previous visits were reviewed. Prior tests were taken into account with medical decision making and resource utilization, independent historian/historians were used to obtain complete medical history. I independently interpreted the test that were performed, results were reviewed by me and considered findings on radiology if ordered. Medical management and examination interpretation discussions were had by me with other qualified healthcare professionals as indicated for the patient's care. 70-year-old male heart score five admitting rule out ACS. DX & DISP Disposition: Inpatient Departure Impression: Primary Impression: Unstable angina Condition: Stable Referrals: JENA TORRES (PCP) VIC RODRIGUEZ MD Jul 02, 2025 11:24
[2025-07-02] MEDS: 0.9%NACL 1000ML 1,000 ML IV SCH (11:39)
[2025-07-02 11:47] LABS: LACTATE DEHYDROGENASE 210.0 U/L (81-234)
--- NOTE | 2025-07-02 11:50 | HP ---
[facility] HISTORY AND PHYSICAL Date of Service: Jul 02, 2025 Time of Service: 11:42 HISTORY OF PRESENT ILLNESS: Date of service: 07/02/2025, patient was seen in ER room 13 This is a 70-year-old male with history of morbid obesity, hypertension, hyperlipidemia, type 2 diabetes mellitus, fatty liver disease, presented to the ER for further evaluation of qmxefveq-gs-uscobm onset midsternal chest pain that started last night. Pain is 9/10 in intensity and has been ongoing for several hours. Pain is also accompanied by patient experiencing moderate discomfort in the mid back as well. Pain does not shoot to the back. Patient denies any associated radiation to the jaw or shoulder. Patient is followed by Dr. Roberts with Cardiology as outpatient. Denies previous history of [place] or cardiac arrhythmia. Patient denies any recent or long travel otherwise. Patient also started noticing that he was having moderate intensity headache that started today which he rates as 7/10. Symptoms have been ongoing for several hours now. Denies any fall or trauma. Patient usually occasionally gets headaches where he infrequently. Reports having surgery done in June 08, 2025 for management of rectal fissure. Denies any significant bleeding issues, denies history of gastritis or gastric ulcer. Denies any recent travel or long drives. On presentation to the hospital, was noted to be afebrile with T-max of 97.9 F, blood pressure of 137/81, saturating 96% on room air. EKG showed normal sinus rhythm with Q-waves noted to be in two three and AVF. Labs on presentation showed WBC count of 9100, hemoglobin of 12.7, platelet count of 121037. BMP showed sodium of 135, potassium 4.7, BUN of 18, creatinine 1.2, we will glucose of 93, alkaline phosphatase of 151. Cardiac panel showed troponin of six, BNP of 67. REVIEW OF SYSTEMS CONSTITUTIONAL: Denies fevers, chills, or night sweats. No unintentional weight loss reported. NEUROLOGICAL: Denies headache, amaurosis fugax, motor weakness, sensory deficit, vertigo/spinning sensation, gait abnormalities, or tremors. ENT: No hearing loss, otalgia, otorrhea, rhinitis, rhinorrhea, hoarseness, or sore throat. CARDIOVASCULAR: Non Resolving jjqebboe-is-ccpaqg intensity chest pain ongoing for several hours today PULMONARY: Denies any shortness of breath, cough, phlegm/sputum, hemoptysis, pleuritic chest pain. SLEEP: Denies morning headaches, daytime somnolence or napping. Denies difficulty falling asleep, staying asleep, waking from sleep. Denies knowledge of snoring. GASTROINTESTINAL: Denies any type of dysphagia to either liquids or solids. Denies nausea, vomiting, pyrosis, early satiety, abdominal pain, diarrhea, constipation, or changes in stool consistency or caliber. Denies coffee-ground emesis, hematemesis, hematochezia, or melanotic stools. GENITOURINARY: Denies frequency, urgency, nocturia, hematuria or incontinence (Storage/Irritative symptoms.) Low urinary stream, straining to void, urinary intermittency or hesitancy, splitting of the voiding stream, terminal dribbling. ENDOCRINOLOGIC: Denies polyuria, polydipsia, polyphagia or heat/cold intolerances. HEMATOLOGIC: Denies thrombophilia/previous clots, or coagulopathy/bleeding disorders. ONCOLOGIC: Denies personal history of malignancy. DERMATOLOGIC: Denies rashes or pruritus. PSYCHIATRIC: Denies any suicidal or homicidal ideation. Denies hallucinations. PAST MEDICAL HISTORY: Hypertension, hyperlipidemia, type 2 diabetes mellitus, morbid obesity PAST SURGICAL HISTORY: History of cholecystectomy, recent history of rectal fissure repair on 06/08/2025 PAST SOCIAL HISTORY: Patient denies active smoking or alcohol consumption, resides with daughter at home FAMILY HISTORY: from heart attack at the age of 80 allergies: No known drug allergies Home medications: Reports being on metoprolol and Entresto as outpatient along with aspirin, family will be bringing list of home medications to confirm dosage Coded Allergies: No Known Drug Allergies (Unverified Allergy, Unknown, 07/02/25) Uncoded Allergies: NKDA (Allergy, Unknown, 06/18/14) NKDA PHYSICAL EXAM: GENERAL APPEARANCE: The patient is awake, alert, and oriented, in no acute cardiopulmonary distress. NEUROLOGICAL: Cranial nerves II-XII grossly intact. Motor is 5/5 in bilateral upper and lower extremities proximal to distal. No sensory deficits. HEENT: Face is symmetric. Pupils are equal and reactive. Extraocular movements are intact. NECK: Supple. No JVD. No thyromegaly. No submental, submandibular, pre- /postauricular, occipital or supraclavicular lymphadenopathy. CHEST: Normal chest expansion. No Telemetry. LUNGS: Minimal crackles noted of the bilateral lung bases CARDIOVASCULAR: Regular. S1 and S2 normal. No appreciable rubs, murmurs or gallops. ABDOMEN: Soft, nontender, and nondistended. There is no rebound, voluntary guarding, or rigidity. : Deferred. No Barrios. EXTREMITIES: Non-edematous and not cyanotic. No clubbing. Good capillary refill. SKIN: No skin breakdown. Vital Sign (Last 24 Hours) 07/02/25 10:16 Temp 97.9 Pulse 71 Resp 10 B/P (MAP) 126/70 Pulse Ox 97 O2 Delivery Room Air* O2 Flow Rate 0 FiO2 21 LABS: Laboratory: Test 07/02/25 08:46 07/02/25 08:40 Range/Units White Blood Count 9.1 4.8-10.8 K/uL Red Blood Count 4.23 L 4.50-6.20 MIL/uL Hemoglobin 12.7 L 14.0-18.0 g/dL Hematocrit 37.0 L 42-54 % Mean Corpuscular Volume 87.5 79-99 fL Mean Corpuscular Hemoglobin 30.0 27.0-33.0 pg Mean Corpuscular Hemoglobin Concent 34.3 32.0-36.0 g/dL Red Cell Distribution Width 12.8 11.0-15.5 % Platelet Count 214 130-400 K/uL Mean Platelet Volume 10.1 7.5-10.5 fL Immature Granulocyte % (Auto) 0.4 0-1 % Neutrophils (%) (Auto) 66.8 40.0-77.0 % Lymphocytes (%) (Auto) 21.7 21.0-51.0 % Monocytes (%) (Auto) 8.3 3.0-13.0 % Eosinophils (%) (Auto) 2.1 0.0-8.0 % Basophils (%) (Auto) 0.7 0.0-5.0 % Neutrophils # (Auto) 6.1 1.8-7.7 K/uL Lymphocytes # (Auto) 2.0 1.0-4.8 K/uL Monocytes # (Auto) 0.8 0.1-1.0 K/uL Eosinophils # (Auto) 0.19 0.00-0.70 K/uL Basophils # (Auto) 0.06 0.00-0.20 K/uL Absolute Immature Granulocyte (auto 0.04 0-1 K/uL Nucleated Red Blood Cells 0.0 0.0-0.19 % Sodium Level 135 L 136-145 mmol/L Potassium Level 4.7 3.5-5.1 mmol/L Chloride Level 102 101-111 mmol/L Carbon Dioxide Level 26 21-32 mmol/L Blood Urea Nitrogen 18 7-18 mg/dL Creatinine 1.2 0.5-1.3 mg/dL Glomerular Filtration Rate Calc 65 >90 mL/min Random Glucose 193 H 70-105 mg/dL Total Calcium 8.7 8.5-10.1 mg/dL Total Bilirubin 0.3 0.2-1.0 mg/dL Direct Bilirubin 0.1 0.0-0.3 mg/dL Aspartate Amino Transf (AST/SGOT) 34 10-37 U/L Alanine Aminotransferase (ALT/SGPT) 51 12-78 U/L Alkaline Phosphatase 151 H 50-136 U/L Total Creatine Kinase 84 21-232 U/L Troponin I High Sensitivity 6 4-75 ng/L B-Type Natriuretic Peptide 67 0-100 pg/mL Total Protein 7.1 6.0-8.3 g/dL Albumin 3.1 L 3.5-5.0 g/dL Urine Color YELLOW YELLOW Urine Appearance CLOUDY H CLEAR Urine pH 5.5 5.0-8.0 Urine Specific [place] 1.019 1.001-1.031 Urine Protein 70 H NEGATIVE mg/dL Urine Glucose (UA) 50 H NEGATIVE mg/dL Urine Ketones NEGATIVE NEGATIVE mg/dL Urine Occult Blood NEGATIVE NEGATIVE Urine Nitrate NEGATIVE NEGATIVE Urine Bilirubin NEGATIVE NEGATIVE mg/dL Urine Urobilinogen 0.2 0.2-1.0 mg/dL Urine Leukocyte Esterase 25 H NEGATIVE Kimmie/uL Urine RBC 0-1 0-1 /HPF Urine WBC 2-5 H 0-1 /HPF Urine Squamous Epithelial Cells RARE 0-2 /HPF Urine Bacteria None None Seen /HPF Urine Granular Casts (Auto) 2-5 H None Seen /LPF Current Medications Medications (Trade) Dose Ordered Sig/Sven Route PRN Reason Start Time Stop Time Status Last Admin Dose Admin Acetaminophen (TYLenol 325MG TAB) 650 mg Q6H PRN PO MILD PAIN (1-3) 07/02/25 11:30 08/01/25 11:29 Aspirin (Aspirin 81mg Chew Tab) 81 mg DAILY PO 07/03/25 09:00 08/02/25 08:59 Enoxaparin Sodium (Lovenox) 40 mg DAILY SQ 07/03/25 09:00 08/02/25 08:59 Famotidine (Pepcid 20mg Tab) 20 mg BID PO 07/02/25 21:00 08/01/25 20:59 Insulin Human Regular (humuLIN R 100 UNIT/ML 3ML) INSULIN SLIDING SCAL... ACHS SQ 07/02/25 11:30 08/01/25 11:29 Ondansetron HCl (zoFRAN 4MG INJ) 4 mg Q6H PRN IVP NAUSEA/VOMITING 07/02/25 11:30 08/01/25 11:29 Sodium Chloride 1,000 ml @ 50 mls/hr Q20H IV 07/02/25 11:30 08/01/25 11:29 07/02/25 11:39 50 MLS/HR DIAGNOSTICS / RADIOLOGY: SERVICE 4 REASON: cp ORDERING PHYSICIAN: VIC RODRIGUEZ MD PROCEDURE: CXR1VW - CHEST 1VW EXAM: CR Chest, 1 View. CLINICAL HISTORY: COMPARISON: 11/08/16 9:08 EST CR - CHEST 1VW FINDINGS: LUNGS: There is no mass, infiltrate, or acute pulmonary abnormality. PLEURAL SPACES: No pleural effusion or pneumothorax. MEDIASTINUM: The cardiomediastinal silhouette is within normal limits. BONES: No aggressive appearing osseous lesion seen. IMPRESSION: No acute cardiopulmonary pathology is evident. /[place] DICTATED BY: ALYSSA JACOBSEN Jr., MD DATE: 07/02/251152 ELECTRONICALLY SIGNED BY: ALYSSA JACOBSEN Jr., MD DATE: 07/02/251152 ASSESSMENT: Chest pain, POA, rule out unstable angina/ACS, POA Elevated D-dimer, rule out DVT/PE, POA Morbid obesity, POA Suspected untreated obstructive sleep apnea, POA Hypertension, POA Hyperlipidemia, POA Type 2 diabetes mellitus, POA Hyponatremia, mild, POA PLAN: Patient will be admitted to cardiac telemetry floor D-dimer is noted to be elevated greater than 1000, we will obtain CT PE protocol to rule out PE as well as make sure there is no acute aortic pathology, we will obtain a lower extremity venous ultrasound as well Cardiac panel will be trended x3 to rule out active ACS Patient remains at high-risk of coronary artery disease due to underlying Age, and multiple underlying comorbidities, we will have Cardiology follow up with the patient Request consultation with pulmonology for suspected untreated obstructive sleep apnea, patient will need sleep study as outpatient on discharge New with home dose of metoprolol tartrate 50 mg twice daily, Entresto twice daily, continue with aspirin 81 mg daily, we will reconciled and update patient's home medications once available We will start patient on gentle hydration with NS at 50 cc an hour, we will check flu and COVID testing All labs will be repeated in the morning We will keep patient on Lovenox for DVT prophylaxis and Protonix for GI prophylaxis Date of service: 07/02/2025 Plan of care was discussed with patient at bedside, Cory Tony MD Advanced Care Planning: Which of the following were discussed: Hospice care: Yes __ No _X_ Therapeutic options: Yes _X_ No __ Advance directives: Yes _X_ No __ Other discussions: Discussed with who?: Patient Voluntary nature of this service was explained to the patient? Yes _x_ No __ Amount of time spent: 20 minutes CORY TONY MD Jul 02, 2025 11:50
--- NOTE | 2025-07-02 11:59 | HMCIMG ---
EXAM: CT Head Without IV contrast. CLINICAL HISTORY: headache that started today, moderate headache, non resolving TECHNIQUE: Axial computed tomography images of the head/brain without intravenous contrast. COMPARISON: None provided. FINDINGS: BRAIN: No evidence of acute hemorrhage. No mass lesion. No CT evidence for acute territorial infarct. No midline shift or extra-axial collections. VENTRICLES: No hydrocephalus. ORBITS: The orbits are unremarkable. SINUSES AND MASTOIDS: The paranasal sinuses and mastoid air cells are clear. BONES: No fracture. SOFT TISSUES: Unremarkable. IMPRESSION: No acute intracranial abnormality. /[place]
[2025-07-02 12:11] LABS: LDL DIRECT 95.0 mg/dL (0-99)
[2025-07-02 12:35] LABS: SARS-CoV-2, RNA, NAAT NEGATIVE SARS CoV-2 (NEGATIVE)
[2025-07-02 12:40] LABS: INFLUENZA TYPE A Negative For Type A (NEGATIVE); INFLUENZA TYPE B Negative For Type B (NEGATIVE)
[2025-07-02] MEDS ORDERED: IOHEXOL 350 MG/ML 100ML INFUS..BTL IV ONE (12:51)
[2025-07-02] MEDS ORDERED: MAGNESIUM 2GM PREMIX 50ML 50 ML IV SCH (13:00)
[2025-07-02] MEDS ORDERED: GLIM2TAB30 PO (13:19)
[2025-07-02] MEDS ORDERED: PANT40TA54 PO (13:19)
[2025-07-02] MEDS ORDERED: ESCI-8 PO (13:19)
[2025-07-02] MEDS ORDERED: LEVO88CA5 PO (13:19)
[2025-07-02] MEDS ORDERED: RESM100T PO (13:19)
[2025-07-02] MEDS ORDERED: SITA50TA PO (13:19)
[2025-07-02] MEDS ORDERED: NORT10CA2 PO (13:19)
[2025-07-02] MEDS ORDERED: SACU1TAB7 PO (13:19)
--- NOTE | 2025-07-02 13:30 | CONS ---
[facility] CONSULTATION NOTE Date Patient Seen: Jul 02, 2025 Time of Visit: 13:29 Supervising Physician: Dr. Gabriele Mena Reason for Consultation: "morbid obesity, untreated sleep apnea" BIS consulted by Dr. Cory Tony Primary Care Physician: Joshua Piña. Attending: [facility] Hospitalist team Outpatient Specialists: Inpatient Consults: NATALIE, pulmonology team Dr. Brush, burlap spreader PROBLEM LIST: Chest pain, POA, r/o cardiac etiology Elevated D-dimer, POA, r/po PE, DVT Morbid obesity, BMP 43.2 Suspected untreated obstructive sleep apnea, POA Hypertension, POA Diabetes mellitus type 2, POA Hyponatremia, POA HPI: Mr. Waldrop is a 70-year-old male with history of morbid obesity, hypertension, hyperlipidemia, type 2 diabetes mellitus, fatty liver disease who [place] [facility] [place] evaluation of gbeihamk-mp-lbddbt onset midsternal chest pain that started last night. The patient was admitted by the [facility] Hospitalist team with the diagnosis chest pain r/o unable angina/ACS. Cardiology was consulted and has seen the patient. BIS was consulted for "morbid obesity untreated sleep apnea". CT chest: negative for PE. No aortic aneyrysm or dissection. Hepatomegally with morphology suggestive of cirrhosis. EKG: SR HR 79 bpm, old inferior infarct. I assessed the patient at bedside in ED 13. Significant other was at bedside. Significant other reports that the patient snores and does apear to have episo brigitte of sleep apnea. The patient was having venous Doppler done. The patient appeared comfortable, breathing was even and unlabored, and in no distress. I informed the patient and significant other of plan of care. They verbalized understanding and are in agreement with the plan. Plan and assessment are listed below. PAST MEDICAL HX: see above PAST SURGICAL HX: cholecystectomy;, recent hx of rectal fissure repair on 06/08/2025 SOCIAL HISTORY: No tobacco, ETOH, or illicit drug use Coded Allergies: No Known Drug Allergies (Unverified Allergy, Unknown, 07/02/25) Uncoded Allergies: NKDA (Allergy, Unknown, 06/18/14) NKDA REVIEW OF SYSTEMS: 12 point ROS reviewed with patient. Pertinent positives mentioned above. Otherwise negative. PHYSICAL EXAM: GENERAL: alert, weak, awake oriented x 3 HEENT: EOMI, Sclera non icteric, moist mucosa NECK: Supple, no JVD, trachea midline LUNGS: Clear breath sounds bilaterally. No wheezes HEART: Regular rate and rhythm. Normal S1 and S2, without murmurs ABD: Abdomen soft, obese, nontender. Bowel sounds present EXT: No clubbing cyanosis or edema NEURO: Alert and oriented X3, follows commands Vital Signs (last 8hr) Date Time Temp Pulse Resp B/P (MAP) Pulse Ox O2 Delivery O2 Flow Rate FiO2 07/02/25 11:57 97.9 72 10 117/65 96 Room Air* 0 21 07/02/25 10:16 97.9 71 10 126/70 97 Room Air* 0 21 07/02/25 08:51 97.9 78 14 145/67 97 Room Air* 0 21 07/02/25 08:33 97.9 83 18 137/81 96 Room Air 0 LABS: Hematology Labs: Test 07/02/25 08:46 Range/Units White Blood Count 9.1 4.8-10.8 K/uL Red Blood Count 4.23 L 4.50-6.20 MIL/uL Hemoglobin 12.7 L 14.0-18.0 g/dL Hematocrit 37.0 L 42-54 % Mean Corpuscular Volume 87.5 79-99 fL Mean Corpuscular Hemoglobin 30.0 27.0-33.0 pg Mean Corpuscular Hemoglobin Concent 34.3 32.0-36.0 g/dL Red Cell Distribution Width 12.8 11.0-15.5 % Platelet Count 214 130-400 K/uL Mean Platelet Volume 10.1 7.5-10.5 fL Immature Granulocyte % (Auto) 0.4 0-1 % Neutrophils (%) (Auto) 66.8 40.0-77.0 % Lymphocytes (%) (Auto) 21.7 21.0-51.0 % Monocytes (%) (Auto) 8.3 3.0-13.0 % Eosinophils (%) (Auto) 2.1 0.0-8.0 % Basophils (%) (Auto) 0.7 0.0-5.0 % Neutrophils # (Auto) 6.1 1.8-7.7 K/uL Lymphocytes # (Auto) 2.0 1.0-4.8 K/uL Monocytes # (Auto) 0.8 0.1-1.0 K/uL Eosinophils # (Auto) 0.19 0.00-0.70 K/uL Basophils # (Auto) 0.06 0.00-0.20 K/uL Absolute Immature Granulocyte (auto 0.04 0-1 K/uL Nucleated Red Blood Cells 0.0 0.0-0.19 % Erythrocyte Sedimentation Rate 44 H 0-20 MM/HR Chemistry Labs: Test 07/02/25 11:51 07/02/25 08:46 Range/Units Whole Blood Glucose 93 70-110 MG/DL Sodium Level 135 L 136-145 mmol/L Potassium Level 4.7 3.5-5.1 mmol/L Chloride Level 102 101-111 mmol/L Carbon Dioxide Level 26 21-32 mmol/L Blood Urea Nitrogen 18 7-18 mg/dL Creatinine 1.2 0.5-1.3 mg/dL Glomerular Filtration Rate Calc 65 >90 mL/min Random Glucose 193 H 70-105 mg/dL Hemoglobin A1c 7.1 H 4.0-6.0 % Estimated Average Glucose (eAG) 157 H 70-126 mg/dL Total Calcium 8.7 8.5-10.1 mg/dL Magnesium Level 1.60 L 1.80-2.40 mg/dL Total Bilirubin 0.3 0.2-1.0 mg/dL Direct Bilirubin 0.1 0.0-0.3 mg/dL Aspartate Amino Transf (AST/SGOT) 34 10-37 U/L Alanine Aminotransferase (ALT/SGPT) 51 12-78 U/L Alkaline Phosphatase 151 H 50-136 U/L Lactate Dehydrogenase 210 81-234 U/L Total Creatine Kinase 84 21-232 U/L Troponin I High Sensitivity 6 4-75 ng/L C-Reactive Protein, Quantitative 13.90 H 0.5-3.0 mg/L B-Type Natriuretic Peptide 67 0-100 pg/mL Total Protein 7.1 6.0-8.3 g/dL Albumin 3.1 L 3.5-5.0 g/dL Triglycerides Level 114 30-200 mg/dL Cholesterol Level 158 <200 mg/dL LDL Cholesterol 95 0-99 mg/dL HDL Cholesterol 44 29-71 mg/dL Procalcitonin < 0.05 L 0.05-0.5 ng/mL Thyroid Stimulating Hormone (TSH) 4.57 H 0.36-3.74 uIU/mL Coagulation Labs: Test 07/02/25 08:46 Range/Units D-Dimer Quantitative (PE/DVT) 1066 *H 0-500 ng/mL DIAGNOSTICS / RADIOLOGY RESULTS: [ ] PULMONARY PLAN: -Admitted to PCCU with continuous telemetry monitoring under the [facility] Hospitalist team with BIS as pulmonary consults. -Refer patient to [facility] upon discharge for further sleep studies. -ABGs, drug screen. -Monitor respiratory status closely. -Oxygen therapy as needed. Titrate oxygen prn to keep Spo2>/+=92%. -Atrovent as needed for shortness of breath. -RT to provide IS and education on use. -Robitussin DM as needed cough. -Solu-Medrol IV daily. -Continue antibiotic therapy: Zithromax IV ATTESTATION BY PHYSICIAN The patient has been seen and evaluated, the case has been discussed with the CNC OPERATOR, I agree with the clinical findings and plan of care. Gabriele Mena MD, LUCIA M [employer] WORKER Jul 02, 2025 13:29
--- NOTE | 2025-07-02 13:32 | HMCIMG ---
EXAM: CTA Chest with and without Intravenous Contrast for PE evaluation CLINICAL HISTORY: R/O pe, ELEVATED d-dIMER, CHEST PAIN, R/O AORTIC PATHOLOGY WELL TECHNIQUE: Axial CTA images of the chest with and without intravenous contrast using a pulmonary embolism protocol. Multiplanar reconstructed images were created and reviewed. CONTRAST: None was administered without incident. COMPARISON: CR CHEST DATED 07/02 FINDINGS: PULMONARY ARTERIES: No evidence of central or segmental pulmonary embolism is seen. AORTA: Atherosclerotic changes in the aorta in the form of calcification, most prominent in the thoracic aorta. There is no evidence for aneurysm or dissection of the thoracic aorta. LUNGS: The lungs appear clear. PLEURAL SPACES: No evidence of pneumothorax. No pleural effusion. HEART: Normal heart size. No significant pericardial effusion. LYMPH NODES: No lymphadenopathy is evident. BONES: Spine degenerative changes are seen. No focal osseous abnormality or acute fracture. UPPER ABDOMEN: Small hiatal hernia. Gallbladder surgically absent. Hepatomegaly with morphology suggestive of cirrhosis, recommend correlation with laboratory parameters and clinical history. IMPRESSION: 1. No evidence of pulmonary embolism. 2. No aortic aneurysm or dissection. 3. Hepatomegaly with morphology suggestive of cirrhosis, recommend clinical correlation. /[place]
--- NOTE | 2025-07-02 13:38 | NUR ---
REPORT GIVEN TO VASQUEZ JARA
[2025-07-02 13:41] LABS: CREATINE KINASE, TOTAL 71.0 U/L (21-232)
--- NOTE | 2025-07-02 15:04 | HMCIMG ---
EXAM: US for Deep Venous Thrombosis, bilateral Lower Extremity. CLINICAL HISTORY: Leg Pain and Swelling TECHNIQUE: Real-time ultrasound scan of the veins of the bilateral lower extremity with color Doppler flow, spectral waveform analysis, and compression. COMPARISON: US VENOUS DOPPLER DATED 02/25/2015 FINDINGS: DEEP VEINS: The common femoral, superficial femoral, and popliteal veins are echolucent and compressible. There is normal color Doppler flow throughout. The visualized calf veins appear patent. SOFT TISSUES: No popliteal fossa cyst or other abnormalities. IMPRESSION: No deep venous thrombosis is evident on bilateral lower extremity examination. /[place]
[2025-07-02 19:21] LABS: CREATINE KINASE, TOTAL 67.0 U/L (21-232)
[2025-07-02] MEDS: SACUBITRIL/VALSARTAN 1 EACH TABLET PO SCH (20:32)
[2025-07-02] MEDS: FAMOTIDINE 20MG TAB PO SCH (20:32)
[2025-07-02] MEDS: NORTRIPTYLINE HCL 10 MG PO SCH (20:41)
--- NOTE | 2025-07-02 23:25 | CONS ---
ABIOLA DUMONT MD Jul 02, 2025 23:25
[2025-07-03] VITALS (7 sets, daily range): BP systolic 128–136; BP diastolic 72–78; PULSE 70–96; RESP 11–20; TEMP 98.3–98.4; O2SAT 95–98
--- NOTE | 2025-07-03 01:02 | NUR ---
PT INSTRUCTED NOT TO HAVE ANYTHING TO EAT OR DRINK AFTER MIDNIGHT FOR THEIR CARDIAC STRESS TEST. PT VERBALIZED UNDERSTANDING.
[2025-07-03 02:41] LABS: NUCLEATED RED BLOOD CELLS 0.0 % (0.0-0.19); PLATELET COUNT (AUTO) 163.0 K/uL (130-400); RED BLOOD CELL COUNT(AUTO) 3.76 MIL/uL (4.50-6.20); RED CELL DISTRIBUTION WIDTH 12.7 % (11.0-15.5); WHITE BLOOD COUNT (AUTO) 6.7 K/uL (4.8-10.8)
[2025-07-03 02:55] LABS: ASPARTATE AMINOTRANSFERASE 29.0 U/L (10-37); CREATININE 0.9 mg/dL (0.5-1.3); GLOMERULAR FILTR. RATE CALC 92.0 mL/min (>90); GLUCOSE,RANDOM 116.0 mg/dL (70-105); SODIUM SERUM 136.0 mmol/L (136-145); TOTAL PROTEIN, SERUM 6.2 g/dL (6.0-8.3); UREA NITROGEN, BLOOD 13.0 mg/dL (7-18)
--- NOTE | 2025-07-03 05:59 | CONS ---
CONSULT NOTE: CARDIOLOGY Reason for consult: Chest pain HPI/story at presentation: This is a pleasant 70-year-old male with past medical history as below present with complaints of chest discomfort and is currently being evaluated for this. Troponins negative, CT negative for PE. Cardiology consulted for further evaluation and management Past medical history: See below Allergies, Meds See chart Review of systems Review of Systems Constitutional: Negative for chills and fever. HENT: Negative for ear discharge and ear pain. Eyes: Negative for photophobia and discharge. Respiratory: Negative for cough, sputum production and stridor. Cardiovascular: Negative for chest pain and palpitations. Gastrointestinal: Negative for diarrhea and vomiting. Genitourinary: Negative for frequency. Musculoskeletal: Negative for myalgias. Skin: Negative for rash. Neurological: Negative for focal weakness and seizures. Endo/Heme/Allergies: Negative for polydipsia. Psychiatric/Behavioral: Negative for hallucinations. Vitals see chart PHYSICAL EXAMINATION GENERAL: The patient is alert and oriented*3 HEENT: Nonicteric sclerae, non traumatic HEART: Regular rate and rhythm with no murmurs LUNGS: Clear to auscultation bilaterally ABDOMEN: No acute issues, non tender GENITAL, RECTAL: deferred SKIN: No rash NEUROLOGIC: NFND EXTREMITIES: No edema ASSESSMENT CHEST PAIN Atypical symptoms of presentation Negative troponin EKG and CT chest Elevated D-dimer presentation, negative CT as above Remote history of cardiac catheterization negative HYPERTENSION HYPERLIPIDEMIA OBESITY DIABETES, SLEEP APNEA CORE MEASURES Aspirin statin beta-nahomy Entresto, 06/2025 OTHER MEDICAL PROBLEMS Hyponatremia PLAN 07/02/2025 atypical chest pain in setting of multiple risk factors. Proceed with stress testing and echocardiogram to further evaluate. CT chest was negative. Seen and examined 07/02/2025 at around 2300 ATTESTATION I was involved substantially in the care of this patient Number and complexity of problems addressed: 1 acute illness with systemic features Amount and or complexity of data Review of prior external note(s) from each unique source: 2+ Ordering of each unique test : 0 Review of the result(s) of each unique test: 2+ Assessment requiring an independent historian(s): No Independent interpretation of test performed by another MD/QHCP/appropriate source (not separately reported) : No Discussion of management or test interpretation with external MD/QHCP/appropriate source (not separately reported) : No Risk status (cardiac, billing related): Moderate SIVAGNANAM,KAMESH MD Jul 03, 2025 05:59
--- NOTE | 2025-07-03 07:09 | HMCIMG ---
EXAMINATION: ULTRASOUND OF THE ABDOMEN (LIMITED) WITH COLOR DOPPLER. CLINICAL HISTORY: Assess for liver cirrhosis. COMPARISON: CT abdomen and pelvis with contrast dated 05/31/2025. TECHNIQUE: Real-time grayscale ultrasound images of the abdomen. In addition, color Doppler is medically necessary to perform in order to evaluate vascularity and blood flow. FINDINGS: Liver: Normal in caliber, the right hepatic lobe measures 11.3 cm in the craniocaudal dimension. There is coarse echotexture of the hepatic parenchyma. There is no focal hepatic abnormality or intrahepatic biliary ductal dilatation. There is normal spectral Doppler of the main portal vein. Gallbladder: Post cholecystectomy status. Common bile duct is normal in caliber, measuring 0.5 cm. Pancreas: Normal in caliber and echotexture. No calcification or dilated pancreatic duct. The right kidney is normal in caliber, the right kidney measures 10.2 x 6.4 x 4.6 cm in craniocaudal, AP, and transverse dimensions respectively. There is normal renal cortical thickness, and cortical echogenicity. There is no renal calculus or hydronephrosis. IMPRESSION: Chronic hepatic disease. Post cholecystectomy status. No significant interval changes. /[place]
--- NOTE | 2025-07-03 07:25 | NUR ---
Pt. taken for nuclear medicine exam.
[2025-07-03] MEDS: REGADENOSON 0.4 MG/5 ML PF SYG IVP ONE (08:27)
[2025-07-03 09:00] LABS: AMPHET/METH SCREEN,URINE NEGATIVE (NEGATIVE); BARBITURATE SCREEN, URINE NEGATIVE (NEGATIVE); CANNABINOID SCREEN,URINE NEGATIVE (NEGATIVE); COCAINE SCREEN,URINE NEGATIVE (NEGATIVE)
[2025-07-03] MEDS: RESMETIROM PO SCH (09:00)
[2025-07-03] MEDS: ENOXAPARIN SODIUM 40 MG/0.4 ML SYRINGE SQ SCH (09:13)
[2025-07-03] MEDS: ASPIRIN 81MG CHEW TAB PO SCH (09:13)
--- NOTE | 2025-07-03 11:57 | HMCSR ---
APPROVED REPORT Height: 5 ft 7in Weight: 276 lbs TEST INDICATIONS Chest Pain The imaging protocol used to acquire images was Rest Tc-99m/stress Tc-99m 1 day Consent: The procedure was explained and understood by the patient. Informerd consent was witnessed Kevin Wallace RN First, low dose rest was performed then high dose stress. RESTING DATA: The resting ekg shows: NSR Rest SPECT myocardial perfusion imaging was performed in supine position minutes following the intra venous injection of mCi of Tc-99 Sestamibi. Time of rest injection: 06:45: Date: 07/03/2025 PHARMACOLOGIC STRESS: Pharmacologic stress test was performed by injecting regadenoson 0.4 mg IV push followed by the intra venous injection of mCi of Tc-99 Sestamibi. Time of stress injection: 08:20: Date: 07/03/2025 Heart Rate at time of stress injection: 80 bpm. Gated Stress SPECT was performed 60 minutes after stress injection. The images were gated to evaluate regional wall motion and calculate left ventricular ejection fracti on. STRESS DETAILS Reason for Termination: Infusion complete Stress Symptoms: Dyspnea, Chest pressure Max HR Achieved: 91 bpm % of APMHR Achieved: 71 Max Blood Pressure: 130/55 mmHg Stress ECG: NSR LV PERFUSION Uniform tracer uptake in all garcias. No evidence of ischemia or infarction noted. EF of 74%. Low risk stress test as above. Conclusion Uniform tracer uptake in all garcias. No evidence of ischemia or infarction noted. EF of 74%. Low risk stress test as above.
--- NOTE | 2025-07-03 12:13 | HMCSR ---
APPROVED REPORT EXAM: Two-dimensional and M-mode echocardiogram with Doppler and color Doppler. INDICATION ICD: Chest Pain 2D Dimensions RVDd2.8 cmLVEF(%)62.2 (>50%)LVED Vol(simp.)106.0 mL IVSd0.8 (0.7-1.1cm)FS(%)34 %LVES Vol(simp.)36.0 mL LVDd5.4 (3.8-5.6cm)LA (2D)3.5 (1.6-4.0cm)LVEF(%, simp.)66 % PWd0.8 (0.7-1.1cm)Ao Root(2D)3.6 (2.0-3.7cm)LA ESV INDEX (BP)22.78 mL/m2 IVSs1.2 cmLVOT diam2.4 (1.8-2.4cm) LVDs3.6 (2.5-4.0cm) PWs1.4 cm Deformation Strain Apical 4-20.6 % Apical 2-19.2 % Apical 3-20.7 % Global Strain-20.2 % M-Mode Dimensions LA (MM)3.9 (1.6-4.0cm) Ao Root(MM)3.1 (2.0-3.7cm) Aortic Valve AoV Vmax2.0 m/Alex Peak GR15.3 mmHgLVOT Vmax1.4 m/s AoV VTI0.3 mAo Mean GR8.7 mmHgLVOT VTI0.29 m MEME (VMAX)3.16 cm2AVA (VTI) 3.8 cm2 Mitral Valve MV E Vmax87.8 cm/sDECEL Jkhu396 ms MV A Fikh807.7 cm/sP 1/2 T54 ms E/A ratio0.7MVA (PHT)4.1 cm2 TDI E/E' Omouei49.3E/E' Vzjijwy57.4 Medial E' Peak V4.55 cm/sLateral E' Peak V7.09 cm/s Pulmonary Valve PV Vmax1.2 m/sPV VTI0.22 mPV Mean GR3.4 mmHg PV Peak GR5.5 mmHg Tricuspid Valve TR Vmax1.3 m/sRAP (EST) 3 reTrTBBA06.2 mmHg TR Peak GR7.2 mmHg Left Ventricle The left ventricle is normal size. GLS -20.0% There is normal left ventricular wall thickness. LVEF i s 65-70%. 3D volume EF 66% Stage I diastolic dysfunction. Right Ventricle The right ventricle is normal size. The right ventricular systolic function is normal. Atria The left atrium size is normal. The right atrium size is normal. Aortic Valve Aortic valve is not well visualized but no significant valvular abnormalities noted. No aortic regurg itation is present. There is no aortic valvular stenosis. Mitral Valve The mitral valve is mildly thickened and opens well. There is no mitral valve regurgitation noted. Th ere is no mitral valve stenosis. Tricuspid Valve The tricuspid valve is normal in structure. There is no tricuspid valve regurgitation noted. Pulmonic Valve The pulmonary valve is normal in structure. There is no pulmonic valvular regurgitation. Great Vessels The aortic root is normal in size. The IVC is normal in size and collapses >50% with inspiration. Pericardium There is no pericardial effusion. Other Information Quality : Technically difficult study due to body habitus Conclusion LVEF is 65-70%. 3D volume EF 66% Stage I diastolic dysfunction. There is normal left ventricular wall thickness. The left ventricle is normal size. GLS -20.0% There is no pericardial effusion. Normal pulmonary pressures Study quality was adequate
[2025-07-03 15:44] LABS: ABG BASE EXCESS 0.7 mmol/L (-2.0-3.0); ABG HCO3 24.7 mmol/L (21.0-28.0); ABG OXYGEN SATURATION 93.5 % (94.0-98.0); ABG PCO2 38 mmHg (35-48); ABG PH 7.433 (7.350-7.450); DEVICE COMMENT RRFRANK; PO2, ARTERIAL BG 65.2 mmHg (83.0-108.0); TEMPERATURE, CELSIUS BG 37.0 CELSIUS (35.5-37.0); VENT MODE, BG RA (ROOM AIR)
--- NOTE | 2025-07-03 16:27 | PN ---
[facility] PROGRESS NOTE Date of Service: Jul 03, 2025 Time of Service: 15:49 SUBJECTIVE: This is a 70-year-old male with history of morbid obesity, hypertension, hyperlipidemia, type 2 diabetes mellitus, fatty liver disease, presented to the ER for further evaluation of gymfmhet-md-pflxkf onset midsternal chest pain that started last night. Pain is 9/10 in intensity and has been ongoing for several hours. Pain is also accompanied by patient experiencing moderate discomfort in the mid back as well. Pain does not shoot to the back. Patient denies any associated radiation to the jaw or shoulder. Patient is followed by Dr. Roberts with Cardiology as outpatient. On presentation to the hospital, was noted to be afebrile with T-max of 97.9 F, blood pressure of 137/81, saturating 96% on room air. EKG showed normal sinus rhythm with Q-waves noted to be in two three and AVF. Labs on presentation showed WBC count of 9100, hemoglobin of 12.7, platelet count of [id number]. BMP showed sodium of 135, potassium 4.7, BUN of 18, creatinine 1.2, we will glucose of 93, alkaline phosphatase of 151. Cardiac panel showed troponin of six, BNP of 67. 07/03/25 Patient was evaluated at the bedside. He doesn't complain of chest pain and shortness of breadth. He is hemodynamically stable. Serial troponin levels was within the normal limits. ECG didn't show any remarkable changes. Urinalysis was positive for high WBC, protein and glucose along with high number of casts. Stress test and echocardiogram was unremarkable. ABG done today revealed Po2 65.2. He was planned to discharge today but ABG showed hypoxemia. REVIEW OF SYSTEMS CONSTITUTIONAL: Denies fevers, chills, or night sweats. No unintentional weight loss reported. NEUROLOGICAL: Denies headache, motor weakness, sensory deficit. CARDIOVASCULAR: Chest pain resolved. No diaphoresis. PULMONARY: Denies any shortness of breath, cough, phlegm/sputum, hemoptysis, pleuritic chest pain. GASTROINTESTINAL: Denies any type of dysphagia to either liquids or solids. Denies nausea, vomiting, abdominal pain, diarrhea, constipation, or changes in stool consistency or caliber. GENITOURINARY: Denies frequency, urgency, nocturia. PHYSICAL EXAM: GENERAL APPEARANCE: The patient is awake, alert, and oriented, in no acute cardiopulmonary distress. NEUROLOGICAL: Motor and sensory function intact. CHEST: Normal chest expansion. LUNGS: Bilateral vesicular breath sounds are heard. CARDIOVASCULAR: Regular. S1 and S2 normal. No appreciable rubs, murmurs. ABDOMEN: Soft, nontender, and nondistended. There is no rebound, voluntary guarding, or rigidity. EXTREMITIES: Non-edematous and not cyanotic. No clubbing. Good capillary refill. SKIN: No skin breakdown. Vital Signs (last 8hr) Date Time Temp Pulse Resp B/P (MAP) Pulse Ox O2 Delivery O2 Flow Rate FiO2 07/03/25 12:04 96 Room Air* 0 21 07/03/25 12:03 98.2 82 16 128/78 96 Room Air 0.0 07/03/25 09:41 18 N/A Room Air 21 07/03/25 08:00 98.2 79 11 136/72 95 Room Air 0.0 LABS: Laboratory: Test 07/03/25 15:42 07/03/25 12:35 07/03/25 08:30 07/03/25 02:36 Range/Units Blood Gas Specimen Type Arterial Arterial Blood pH 7.433 7.350-7.450 Arterial Blood Partial Pressure CO2 38 35-48 mmHg Arterial Blood Partial Pressure O2 65.2 L 83.0-108.0 mmHg Arterial Blood HCO3 24.7 21.0-28.0 mmol/L Arterial Blood Oxygen Saturation 93.5 L 94.0-98.0 % Arterial Blood Base Excess 0.7 -2.0-3.0 mmol/L Blood Gas Temperature 37.0 35.5-37.0 CELSIUS Blood Gas Vent Mode RA ROOM AIR FiO2 21.0 % Blood Gas Specimen Comment RRFRANK Whole Blood Glucose 138 H 70-110 MG/DL Urine Opiates Screen NEGATIVE NEGATIVE Urine Barbiturates Screen NEGATIVE NEGATIVE Urine Phencyclidine Screen NEGATIVE NEGATIVE Urine Amphetamines Screen NEGATIVE NEGATIVE Urine Benzodiazepines Screen NEGATIVE NEGATIVE Urine Cocaine Screen NEGATIVE NEGATIVE Urine Marijuana (THC) Screen NEGATIVE NEGATIVE White Blood Count 6.7 # 4.8-10.8 K/uL Red Blood Count 3.76 L 4.50-6.20 MIL/uL Hemoglobin 11.4 L 14.0-18.0 g/dL Hematocrit 32.8 L 42-54 % Mean Corpuscular Volume 87.2 79-99 fL Mean Corpuscular Hemoglobin 30.3 27.0-33.0 pg Mean Corpuscular Hemoglobin Concent 34.8 32.0-36.0 g/dL Red Cell Distribution Width 12.7 11.0-15.5 % Platelet Count 163 130-400 K/uL Mean Platelet Volume 10.0 7.5-10.5 fL Nucleated Red Blood Cells 0.0 0.0-0.19 % Sodium Level 136 136-145 mmol/L Potassium Level 4.4 3.5-5.1 mmol/L Chloride Level 104 101-111 mmol/L Carbon Dioxide Level 28 21-32 mmol/L Blood Urea Nitrogen 13 7-18 mg/dL Creatinine 0.9 0.5-1.3 mg/dL Glomerular Filtration Rate Calc 92 >90 mL/min Random Glucose 116 H 70-105 mg/dL Total Calcium 8.5 8.5-10.1 mg/dL Total Bilirubin 0.4 # 0.2-1.0 mg/dL Aspartate Amino Transf (AST/SGOT) 29 10-37 U/L Alanine Aminotransferase (ALT/SGPT) 44 12-78 U/L Alkaline Phosphatase 137 H 50-136 U/L Total Protein 6.2 6.0-8.3 g/dL Albumin 2.7 L 3.5-5.0 g/dL Test 07/02/25 18:55 07/02/25 12:00 07/02/25 08:46 07/02/25 08:40 Range/Units Total Creatine Kinase 67 21-232 U/L Troponin I High Sensitivity 5.4 4-75 ng/L Influenza Type A Antigen Negative For Type A NEGATIVE Influenza Type B Antigen Negative For Type B NEGATIVE SARS-CoV-2, RNA, NAAT NEGATIVE SARS CoV-2 NEGATIVE Immature Granulocyte % (Auto) 0.4 0-1 % Neutrophils (%) (Auto) 66.8 40.0-77.0 % Lymphocytes (%) (Auto) 21.7 21.0-51.0 % Monocytes (%) (Auto) 8.3 3.0-13.0 % Eosinophils (%) (Auto) 2.1 0.0-8.0 % Basophils (%) (Auto) 0.7 0.0-5.0 % Neutrophils # (Auto) 6.1 1.8-7.7 K/uL Lymphocytes # (Auto) 2.0 1.0-4.8 K/uL Monocytes # (Auto) 0.8 0.1-1.0 K/uL Eosinophils # (Auto) 0.19 0.00-0.70 K/uL Basophils # (Auto) 0.06 0.00-0.20 K/uL Absolute Immature Granulocyte (auto 0.04 0-1 K/uL Erythrocyte Sedimentation Rate 44 H 0-20 MM/HR D-Dimer Quantitative (PE/DVT) 1066 *H 0-500 ng/mL Hemoglobin A1c 7.1 H 4.0-6.0 % Estimated Average Glucose (eAG) 157 H 70-126 mg/dL Magnesium Level 1.60 L 1.80-2.40 mg/dL Direct Bilirubin 0.1 0.0-0.3 mg/dL Lactate Dehydrogenase 210 81-234 U/L C-Reactive Protein, Quantitative 13.90 H 0.5-3.0 mg/L B-Type Natriuretic Peptide 67 0-100 pg/mL Triglycerides Level 114 30-200 mg/dL Cholesterol Level 158 <200 mg/dL LDL Cholesterol 95 0-99 mg/dL HDL Cholesterol 44 29-71 mg/dL Procalcitonin < 0.05 L 0.05-0.5 ng/mL Thyroid Stimulating Hormone (TSH) 4.57 H 0.36-3.74 uIU/mL Urine Color YELLOW YELLOW Urine Appearance CLOUDY H CLEAR Urine pH 5.5 5.0-8.0 Urine Specific [place] 1.019 1.001-1.031 Urine Protein 70 H NEGATIVE mg/dL Urine Glucose (UA) 50 H NEGATIVE mg/dL Urine Ketones NEGATIVE NEGATIVE mg/dL Urine Occult Blood NEGATIVE NEGATIVE Urine Nitrate NEGATIVE NEGATIVE Urine Bilirubin NEGATIVE NEGATIVE mg/dL Urine Urobilinogen 0.2 0.2-1.0 mg/dL Urine Leukocyte Esterase 25 H NEGATIVE Kimmie/uL Urine RBC 0-1 0-1 /HPF Urine WBC 2-5 H 0-1 /HPF Urine Squamous Epithelial Cells RARE 0-2 /HPF Urine Bacteria None None Seen /HPF Urine Granular Casts (Auto) 2-5 H None Seen /LPF Current Medications Medications (Trade) Dose Ordered Sig/Sven Route PRN Reason Start Time Stop Time Status Last Admin Dose Admin Acetaminophen (TYLenol 325MG TAB) 650 mg Q6H PRN PO MILD PAIN (1-3) 07/02/25 11:30 08/01/25 11:29 Aspirin (Aspirin 81mg Chew Tab) 81 mg DAILY PO 07/03/25 09:00 08/02/25 08:59 07/03/25 09:13 81 MG Atorvastatin Calcium (LIPItor 20MG) 20 mg HS PO 07/02/25 21:00 08/01/25 20:59 07/02/25 20:32 20 MG Citalopram Hydrobromide (CeleXA 20MG TAB) 20 mg DAILY PO 07/03/25 09:00 08/02/25 08:59 07/03/25 09:13 20 MG Enoxaparin Sodium (Lovenox) 40 mg DAILY SQ 07/03/25 09:00 08/02/25 08:59 07/03/25 09:13 40 MG Famotidine (Pepcid 20mg Tab) 20 mg BID PO 07/02/25 21:00 08/01/25 20:59 07/03/25 09:15 20 MG Home Med (Home Medication) Nortriptyline HCl 10MG 1 CAP HS PO 07/02/25 21:00 08/01/25 20:59 Home Med (Home Medication) Resmetirom (Rezdiffra) 100 MG DAILY PO 07/03/25 09:00 08/02/25 08:59 Insulin Human Regular (humuLIN R 100 UNIT/ML 3ML) INSULIN SLIDING SCAL... ACHS SQ 07/02/25 11:30 08/01/25 11:29 Ipratropium Girdler (AtrovENT UD) 0.5 mg [id number] PRN IH SHORTNESS OF BREATH/WHEEZING 07/03/25 02:30 08/02/25 02:29 Levothyroxine Sodium (SYNTHroid 88MCG TAB) 88 mcg SYN PO 07/03/25 06:30 08/02/25 06:29 07/03/25 06:40 88 MCG Linagliptin (TradJENTA) 5 mg DAILY PO 07/03/25 09:00 08/02/25 08:59 07/03/25 09:13 5 MG Magnesium Sulfate 50 ml @ 0 mls/hr PROTOCOL IV 07/02/25 13:00 08/01/25 12:59 Metoprolol Tartrate (loprESSOR) 50 mg BID PO 07/02/25 21:00 07/02/25 14:29 DC Metoprolol Tartrate (loprESSOR) 50 mg BID PO 07/02/25 21:00 08/01/25 20:59 07/03/25 09:14 50 MG Morphine Sulfate (morPHINE 2MG SYG) 2 mg Q6H PRN IVP SEVERE PAIN (7-10) 07/02/25 13:30 07/09/25 13:29 07/02/25 18:03 2 MG Ondansetron HCl (zoFRAN 4MG INJ) 4 mg Q6H PRN IVP NAUSEA/VOMITING 07/02/25 11:30 08/01/25 11:29 07/02/25 18:02 4 MG Sacubitril/ Valsartan (Entresto 49 Mg-51 Mg Tablet) 1 each BID PO 07/02/25 21:00 08/01/25 20:59 07/03/25 09:13 1 EACH Sodium Chloride 1,000 ml @ 50 mls/hr Q20H IV 07/02/25 11:30 08/01/25 11:29 07/03/25 07:39 50 MLS/HR [address] [place] [address] IMAGING REPORT Signed PATIENT: DASH MIMS MR#: [id number] : 1955 SEX: M AGE: 70 LOCATION: [facility] ORDER 1133 STATUS: ADM IN REPORT#: [id number] SERVICE 0000 REASON: CHEST PAIN, DR. WALKER TO READ ORDERING PHYSICIAN: JÚNIOR CARIAS MD PROCEDURE: ECHO CMP - ECHO 2-D COMPLETE APPROVED REPORT EXAM: Two-dimensional and M-mode echocardiogram with Doppler and color Doppler. INDICATION ICD: Chest Pain 2D Dimensions RVDd 2.8 cm LVEF(%) 62.2 (>50%) LVED Vol(simp.) 106.0 mL IVSd 0.8 (0.7-1.1cm) FS(%) 34 % LVES Vol(simp.) 36.0 mL LVDd 5.4 (3.8-5.6cm) LA (2D) 3.5 (1.6-4.0cm) LVEF(%, simp.) 66 % PWd 0.8 (0.7-1.1cm) Ao Root(2D) 3.6 (2.0-3.7cm) LA ESV INDEX (BP) 22.78 mL/m2 IVSs 1.2 cm LVOT diam 2.4 (1.8-2.4cm) LVDs 3.6 (2.5-4.0cm) PWs 1.4 cm Deformation Strain Apical 4 -20.6 % Apical 2 -19.2 % Apical 3 -20.7 % Global Strain -20.2 % M-Mode Dimensions LA (MM) 3.9 (1.6-4.0cm) Ao Root(MM) 3.1 (2.0-3.7cm) Aortic Valve AoV Vmax 2.0 m/s Ao Peak GR 15.3 mmHg LVOT Vmax 1.4 m/s AoV VTI 0.3 m Ao Mean GR 8.7 mmHg LVOT VTI 0.29 m MEME (VMAX) 3.16 cm2 MEME (VTI) 3.8 cm2 Mitral Valve MV E Vmax 87.8 cm/s DECEL Time 223 ms MV A Vmax 132.7 cm/s P 1/2 T 54 ms E/A ratio 0.7 MVA (PHT) 4.1 cm2 TDI E/E' Medial 19.3 E/E' Lateral 12.4 Medial E' Peak V 4.55 cm/s Lateral E' Peak V 7.09 cm/s Pulmonary Valve PV Vmax 1.2 m/s PV VTI 0.22 m PV Mean GR 3.4 mmHg PV Peak GR 5.5 mmHg Tricuspid Valve TR Vmax 1.3 m/s RAP (EST) 3 mmHg RVSP 10.2 mmHg TR Peak GR 7.2 mmHg Left Ventricle The left ventricle is normal size. GLS -20.0% There is normal left ventricular wall thickness. LVEF is 65-70%. 3D volume EF 66% Stage I diastolic dysfunction. Right Ventricle The right ventricle is normal size. The right ventricular systolic function is normal. Atria The left atrium size is normal. The right atrium size is normal. Aortic Valve Aortic valve is not well visualized but no significant valvular abnormalities noted. No aortic regurgitation is present. There is no aortic valvular stenosis. Mitral Valve The mitral valve is mildly thickened and opens well. There is no mitral valve regurgitation noted. There is no mitral valve stenosis. Tricuspid Valve The tricuspid valve is normal in structure. There is no tricuspid valve regu rgitation noted. Pulmonic Valve The pulmonary valve is normal in structure. There is no pulmonic valvular regurgitation. Great Vessels The aortic root is normal in size. The IVC is normal in size and collapses >50% with inspiration. Pericardium There is no pericardial effusion. Other Information Quality : Technically difficult study due to body habitus Conclusion LVEF is 65-70%. 3D volume EF 66% Stage I diastolic dysfunction. There is normal left ventricular wall thickness. The left ventricle is normal size. GLS -20.0% There is no pericardial effusion. Normal pulmonary pressures Study quality was adequate DICTATED BY: ABIOLA DUMONT MD DATE: 07/03/25911 ELECTRONICALLY SIGNED BY: ABIOLA DUMONT MD DATE: 07/03/25 1214 DIAGNOSTICS / RADIOLOGY: [place] [address] IMAGING REPORT Signed PATIENT: DASH MIMS MR#: [id number] : 1955 SEX: M AGE: 70 LOCATION: [facility] ORDER 2335 STATUS: ADM IN REPORT#: [id number] SERVICE 0800 REASON: cp siv to read ORDERING PHYSICIAN: ABIOLA DUMONT MD PROCEDURE: CARD LASHAWN - NM LEXISCAN CARDIOLITE APPROVED REPORT Height: 5 ft 7in Weight: 276 lbs TEST INDICATIONS Chest Pain The imaging protocol used to acquire images was Rest Tc-99m/stress Tc-99m 1 day Consent: The procedure was explained and understood by the patient. Informerd consent was witnessed by Rosemary Wallace RN First, low dose rest was performed then high dose stress. RESTING DATA: The resting ekg shows: NSR Rest SPECT myocardial perfusion imaging was performed in supine position minutes following the intravenous injection of mCi of Tc-99 Sestamibi. Time of rest injection: 06:45: Date: 07/03/2025 PHARMACOLOGIC STRESS: Pharmacologic stress test was performed by injecting regadenoson 0.4 mg IV push followed by the intravenous injection of mCi of Tc-99 Sestamibi. Time of stress injection: 08:20: Date: 07/03/2025 Heart Rate at time of stress injection: 80 bpm. Gated Stress SPECT was performed 60 minutes after stress injection. The images were gated to evaluate regional wall motion and calculate left ventricular ejection fraction. STRESS DETAILS Reason for Termination: Infusion complete Stress Symptoms: Dyspnea, Chest pressure Max HR Achieved: 91 bpm % of APMHR Achieved: 71 Max Blood Pressure: 130/55 mmHg Stress ECG: NSR LV PERFUSION Uniform tracer uptake in all garcias. No evidence of ischemia or infarction noted. EF of 74%. Low risk stress test as above. Conclusion Uniform tracer uptake in all garcias. No evidence of ischemia or infarction noted. EF of 74%. Low risk stress test as above. DICTATED BY: ABIOLA DUMONT MD DATE: 07/03/25 0728 ELECTRONICALLY SIGNED BY: ABIOLA DUMONT MD DATE: 07/03/25 2281 ASSESSMENT: Chest pain, POA, rule out unstable angina/ACS, POA Elevated D-dimer, rule out DVT/PE, POA Morbid obesity, POA Suspected untreated obstructive sleep apnea, POA Hypertension, POA Hyperlipidemia, POA Type 2 diabetes mellitus, POA Hyponatremia, mild, POA Stage I diastolic dysfunction PLAN: Atypical Chest pain, -Patient had uxezxpei-yh-cajiil onset midsternal chest pain on 07/01/25. -Serial Troponin I levels were 6, 6.1 and 5.4. - ECG showed Sinus rhythm and Inferior infarct, old. No significant changes - Stress test showed no any abnormalities. Uniform tracer uptake in all garcias. No evidence of ischemia or infarction noted. EF of 74% - ECHO revealed: LVEF 65-70%. 3D volume EF 66%. Stage I diastolic dysfunction. There is normal left ventricular wall thickness.The left ventricle is normal size. - Venous Doppler results showed No deep venous thrombosis is evident on bilateral lower extremity examination. - Chest Ct examination revealed No evidence of central or segmental pulmonary embolism is seen Hypertension -Lifestyle changes DASH diet, low sodium, weight loss, exercise, limit alcohol, stop smoking. -Target BP goal generally <130/80 mmHg for most patients. - Continue metoprolol tartrate 50 mg Type 2 Diabetes Mellitus - Continue Linagliptin 5 mg daily - Encourage lifestyle modifications including healthy diet, weight loss. - Monitor HbA1c every 3-6 months. ATTESTATION BY PHYSICIAN I have seen and examined the patient. I reviewed the documentation, medical decision making, and treatment plan as noted by the resident provider above. I agree with the findings and plan of care. Hira Barrientos MD ALDO MEDRANO MD Jul 03, 2025 16:27
[2025-07-03] MEDS ORDERED: METO50 PO (17:01)
[2025-07-03] MEDS ORDERED: ASPI-1005 PO (17:01)
--- NOTE | 2025-07-03 17:02 | DS ---
Discharge Summary Hospital Course Summary: This is a 70-year-old male with history of morbid obesity, hypertension, hyperlipidemia, type 2 diabetes mellitus, fatty liver disease, presented to the ER for further evaluation of [id number] onset midsternal chest pain. Pain was also accompanied by patient experiencing moderate discomfort in the mid back as well. Patient denied any associated radiation to the jaw or shoulder. Patient has been under Dr. Roberts, Cardiology as outpatient. On presentation to the hospital, was noted to be afebrile with T-max of 97.9 F, blood pressure of 137/81, saturating 96% on room air. EKG showed normal sinus rhythm with Q-waves noted to be in two three and AVF. Labs were within normal l imits. Cardiac panel showed troponin of six, BNP of 67. In addition to that, Stress test and ECHO didn't show any significant abnormalities. The patient remained hemodynamically stable throughout the hospitalization, chest pain resolved and no recurrent episodes were noted. He was discharged home in stable condition with instructions to continue close follow-up with cardiology and the primary care, adhere to prescribed medications, and maintain appropriate lifestyle modifications. Hat Copyist(s): Cardiology: ABIOLA DUMONT MD Pulmonology: Gabriele Mena MD Procedure(s): [place] [address] [address] IMAGING REPORT Signed PATIENT: DASH MENA MR#: [id number] : 1955 SEX: M AGE: 70 LOCATION: EDHIP ORDER 2335 STATUS: ADM IN REPORT#: [id number] SERVICE 0800 REASON: cp siv to read ORDERING PHYSICIAN: ABIOLA DUMONT MD PROCEDURE: CARD [place] - NM [facility] CARDIOLITE APPROVED REPORT Height: 5 ft 7in Weight: 276 lbs TEST INDICATIONS Chest Pain The imaging protocol used to acquire images was Rest Tc-99m/stress Tc-99m 1 day Consent: The procedure was explained and understood by the patient. Informerd consent was witnessed by Rosemary Wallace RN First, low dose rest was performed then high dose stress. RESTING DATA: The resting ekg shows: NSR Rest SPECT myocardial perfusion imaging was performed in supine position minutes following the intravenous injection of mCi of Tc-99 Sestamibi. Time of rest injection: 06:45: Date: 07/03/2025 PHARMACOLOGIC STRESS: Pharmacologic stress test was performed by injecting regadenoson 0.4 mg IV push followed by the intravenous injection of mCi of Tc-99 Sestamibi. Time of stress injection: 08:20: Date: 07/03/2025 Heart Rate at time of stress injection: 80 bpm. Gated Stress SPECT was performed 60 minutes after stress injection. The images were gated to evaluate regional wall motion and calculate left ventricular ejection fraction. STRESS DETAILS Reason for Termination: Infusion complete Stress Symptoms: Dyspnea, Chest pressure Max HR Achieved: 91 bpm % of APMHR Achieved: 71 Max Blood Pressure: 130/55 mmHg Stress ECG: NSR LV PERFUSION Uniform tracer uptake in all garcias. No evidence of ischemia or infarction noted. EF of 74%. Low risk stress test as above. Conclusion Uniform tracer uptake in all garcias. No evidence of ischemia or infarction noted. EF of 74%. Low risk stress test as above. DICTATED BY: ABIOLA DUMONT MD DATE: 07/03/25 0728 ELECTRONICALLY SIGNED BY: ABIOLA DUMONT MD DATE: 07/03/[address] [address] IMAGING REPORT Signed PATIENT: DASH MENA MR#: [id number] : 1955 SEX: M AGE: 70 LOCATION: EDHIP ORDER 1133 STATUS: ADM IN REPORT#: [id number] SERVICE 0000 REASON: CHEST PAIN, DR. WALKER TO READ ORDERING PHYSICIAN: JÚNIOR CARIAS MD PROCEDURE: ECHO CMP - ECHO 2-D COMPLETE APPROVED REPORT EXAM: Two-dimensional and M-mode echocardiogram with Doppler and color Doppler. INDICATION ICD: Chest Pain 2D Dimensions RVDd 2.8 cm LVEF(%) 62.2 (>50%) LVED Vol(simp.) 106.0 mL IVSd 0.8 (0.7-1.1cm) FS(%) 34 % LVES Vol(simp.) 36.0 mL LVDd 5.4 (3.8-5.6cm) LA (2D) 3.5 (1.6-4.0cm) LVEF(%, simp.) 66 % PWd 0.8 (0.7-1.1cm) Ao Root(2D) 3.6 (2.0-3.7cm) LA ESV INDEX (BP) 22.78 mL/m2 IVSs 1.2 cm LVOT diam 2.4 (1.8-2.4cm) LVDs 3.6 (2.5-4.0cm) PWs 1.4 cm Deformation Strain Apical 4 -20.6 % Apical 2 -19.2 % Apical 3 -20.7 % Global Strain -20.2 % M-Mode Dimensions LA (MM) 3.9 (1.6-4.0cm) Ao Root(MM) 3.1 (2.0-3.7cm) Aortic Valve AoV Vmax 2.0 m/s Ao Peak GR 15.3 mmHg LVOT Vmax 1.4 m/s AoV VTI 0.3 m Ao Mean GR 8.7 mmHg LVOT VTI 0.29 m MEME (VMAX) 3.16 cm2 MEME (VTI) 3.8 cm2 Mitral Valve MV E Vmax 87.8 cm/s DECEL Time 223 ms MV A Vmax 132.7 cm/s P 1/2 T 54 ms E/A ratio 0.7 MVA (PHT) 4.1 cm2 TDI E/E' Medial 19.3 E/E' Lateral 12.4 Medial E' Peak V 4.55 cm/s Lateral E' Peak V 7.09 cm/s Pulmonary Valve PV Vmax 1.2 m/s PV VTI 0.22 m PV Mean GR 3.4 mmHg PV Peak GR 5.5 mmHg Tricuspid Valve TR Vmax 1.3 m/s RAP (EST) 3 mmHg RVSP 10.2 mmHg TR Peak GR 7.2 mmHg Left Ventricle The left ventricle is normal size. GLS -20.0% There is normal left ventricular wall thickness. LVEF is 65-70%. 3D volume EF 66% Stage I diastolic dysfunction. Right Ventricle The right ventricle is normal size. The right ventricular systolic function is normal. Atria The left atrium size is normal. The right atrium size is normal. Aortic Valve Aortic valve is not well visualized but no significant valvular abnormalities noted. No aortic regurgitation is present. There is no aortic valvular stenosis. Mitral Valve The mitral valve is mildly thickened and opens well. There is no mitral valve regurgitation noted. There is no mitral valve stenosis. Tricuspid Valve The tricuspid valve is normal in structure. There is no tricuspid valve regurgitation noted. Pulmonic Valve The pulmonary valve is normal in structure. There is no pulmonic valvular regurgitation. Great Vessels The aortic root is normal in size. The IVC is normal in size and collapses >50% with inspiration. Pericardium There is no pericardial effusion. Other Information Quality : Technically difficult study due to body habitus Conclusion LVEF is 65-70%. 3D volume EF 66% Stage I diastolic dysfunction. There is normal left ventricular wall thickness. The left ventricle is normal size. GLS -20.0% There is no pericardial effusion. Normal pulmonary pressures Study quality was adequate DICTATED BY: ABIOLA DUMONT MD DATE: 07/03/25911 ELECTRONICALLY SIGNED BY: ABIOLA DUMONT MD DATE: 07/03/25 [address] [place] [address] IMAGING REPORT Signed PATIENT: DASH MENA MR#: [id number] : 1955 SEX: M AGE: 70 LOCATION: EDHIP ORDER 17 STATUS: ADM IN REPORT#: [id number] SERVICE REASON: R/O pe, ELEVATED d-dIMER, CHEST PAIN, R/O AORTIC PATHOLOGY WELL ORDERING PHYSICIAN: JÚNIOR CARIAS MD PROCEDURE: [facility] PE - CT CHEST PE PROTOCOL WWO CONT EXAM: CTA Chest with and without Intravenous Contrast for PE evaluation CLINICAL HISTORY: R/O pe, ELEVATED d-dIMER, CHEST PAIN, R/O AORTIC PATHOLOGY WELL TECHNIQUE: Axial CTA images of the chest with and without intravenous contrast using a pulmonary embolism protocol. Multiplanar reconstructed images were created and reviewed. CONTRAST: None was administered without incident. COMPARISON: CR CHEST DATED 07/02 FINDINGS: PULMONARY ARTERIES: No evidence of central or segmental pulmonary embolism is seen. AORTA: Atherosclerotic changes in the aorta in the form of calcification, most prominent in the thoracic aorta. There is no evidence for aneurysm or dissection of the thoracic aorta. LUNGS: The lungs appear clear. PLEURAL SPACES: No evidence of pneumothorax. No pleural effusion. HEART: Normal heart size. No significant pericardial effusion. LYMPH NODES: No lymphadenopathy is evident. BONES: Spine degenerative changes are seen. No focal osseous abnormality or acute fracture. UPPER ABDOMEN: Small hiatal hernia. Gallbladder surgically absent. Hepatomegaly with morphology suggestive of cirrhosis, recommend correlation with laboratory parameters and clinical history. IMPRESSION: 1. No evidence of pulmonary embolism. 2. No aortic aneurysm or dissection. 3. Hepatomegaly with morphology suggestive of cirrhosis, recommend clinical correlation. /[place] DICTATED BY: ALYSSA JACOBSEN Jr., MD DATE: 07/02/251430 ELECTRONICALLY SIGNED BY: ALYSSA JACOBSEN Jr., MD DATE: 07/02/251430 [place] [address] IMAGING REPORT Signed PATIENT: DASH MENA MR#: [id number] : 1955 SEX: M AGE: 70 LOCATION: EDHIP ORDER 1219 STATUS: ADM IN REPORT#: [id number] SERVICE 1218 REASON: R/O ANY LOWER EXTREMITY DVT, ELEVATED D-DIMER ORDERING PHYSICIAN: JÚNIOR CARIAS MD PROCEDURE: VENOUS DANISH - US VENOUS DOPPLER BILATERAL EXAM: US for Deep Venous Thrombosis, bilateral Lower Extremity. CLINICAL HISTORY: Leg Pain and Swelling TECHNIQUE: Real-time ultrasound scan of the veins of the bilateral lower extremity with color Doppler flow, spectral waveform analysis, and compression. COMPARISON: US VENOUS DOPPLER DATED 02/25/2015 FINDINGS: DEEP VEINS: The common femoral, superficial femoral, and popliteal veins are echolucent and compressible. There is normal color Doppler flow throughout. The visualized calf veins appear patent. SOFT TISSUES: No popliteal fossa cyst or other abnormalities. IMPRESSION: No deep venous thrombosis is evident on bilateral lower extremity examination. /[place] DICTATED BY: ALYSSA JACOBSEN Jr., MD DATE: 07/02/251602 ELECTRONICALLY SIGNED BY: ALYSSA JACOBSEN Jr., MD DATE: 07/02/251602 Assessment/Plan: ASSESSMENT: Musculoskeletal Chest pain, POA, Elevated D-dimer, rule out DVT/PE, POA Morbid obesity, POA Suspected untreated obstructive sleep apnea, POA Hypertension, POA Hyperlipidemia, POA Type 2 diabetes mellitus, POA Hyponatremia, mild, POA Stage I diastolic dysfunction Discharge Instructions: * Maintain a Heart Healthy diet, monitor blood glucose level and blood pressure at home. * Continue all the medications as instructed * Follow up with PCP within 3-4 days * Follow up with Pulmonolgist, Dr Mena within 1-2 weeks for outpatient sleep study * Follow up with Cardiology Dr Roberts within 2 weeks * Return to ER if you develop chest pain, shortness of breath, dizziness, fainting or palpitations. Home Medications: Active Scripts Metoprolol Tartrate (Lopressor 50Mg Tab) 50 Mg Tab, 50 MG PO BID for 30 Days, #60 TAB Prov:GLADIS ADKINS MD 07/03/25 Aspirin (ASPIRIN 81MG CHEW TAB) 81 Mg Tab.chew, 81 MG PO DAILY for 30 Days, #30 TAB.CHEW Prov:GLADIS ADKINS MD 07/03/25 Reported Medications Glimepiride (Glimepiride) 2 Mg Tablet, 2 MG PO DAILYBKFST, TAB 07/02/25 Pantoprazole Sodium (Pantoprazole Sodium) 40 Mg Tablet.dr, 1 TAB PO DAILY for 30 Days, #30 TAB 0 Refills 07/02/25 Levothyroxine Sodium (Levothyroxine) 88 Mcg Capsule, 1 CAP PO DAILY for 30 Days, #30 CAP 0 Refills 07/02/25 Sitagliptin Phosphate (Januvia) 50 Mg Tablet, 1 TAB PO DAILY for 30 Days, #30 TAB 0 Refills 07/02/25 Resmetirom (Rezdiffra) 100 Mg Tablet, 100 MG PO DAILY, TAB 07/02/25 Nortriptyline HCl (Nortriptyline HCl) 10 Mg Capsule, 1 CAP PO HS for 30 Days, #30 CAP 0 Refills 07/02/25 Escitalopram Oxalate (Escitalopram Oxalate) 10 Mg Tablet, 1 TAB PO DAILY for 30 Days, #30 TAB 0 Refills 07/02/25 Sacubitril/Valsartan (Entresto 49 mg-51 mg Tablet) 49 Mg-51 Mg Tablet, 1 TAB PO BID for 30 Days, #60 TAB 0 Refills 07/02/25 Atorvastatin Calcium (Atorvastatin Calcium) 20 Mg Tablet, 20 MG PO HS, TAB 11/08/16 Discontinued Reported Medications Lisinopril (Lisinopril) 40 Mg Tablet, 40 MG PO DAILY, TAB 11/08/16 Sertraline HCl (Sertraline HCl) 50 Mg Tablet, 50 MG PO DAILY, TAB 11/08/16 Metoprolol Succinate (Toprol Xl) 25 Mg Tab.er.24h, 25 MG PO BID, TAB 11/08/16 Metformin HCl (Metformin HCl) 850 Mg Tablet, 850 MG PO TIDMEALS, TAB 11/08/16 Ranitidine HCl (Ranitidine HCl) 150 Mg Tablet, 150 MG PO DAILY, #1 TAB 06/18/14 Nitroglycerin (Nitrostat) 0.4 Mg Tab.subl, 0.4 MG SL STAT PRN for CHEST PAIN, #1 TAB.SL 06/18/14 Metformin HCl (Metformin HCl) 500 Mg Tablet, 500 MG PO AM, TAB 06/18/14 Tamsulosin HCl (Tamsulosin HCl) 0.4 Mg Cap.er.24h, 0.4 MG PO AM, CAPSULE.DR 06/18/14 Hydrochlorothiazide (Hydrochlorothiazide) 25 Gm Powder, 25 GM MC DAILY, APPL 06/18/14 Atorvastatin Calcium (LIPITOR) 10 Mg Tablet, 10 MG PO HS, TAB 06/18/14 Lisinopril (Lisinopril) 40 Mg Tablet, 40 MG PO DAILY, TAB 06/18/14 Metoprolol Succinate (Toprol Xl) 25 Mg Tab.er.24h, 25 MG PO DAILY, TAB 06/18/14 Discontinued Scripts Doxycycline Monohydrate (Doxycycline Monohydrate) 100 Mg Capsule, 100 MG PO BID for 10 Days, #20 CAP Prov:MITZI GELLER MD 06/21/23 ALDO SUNG MD Jul 03, 2025 17:02
--- NOTE | 2025-07-03 17:06 | PN ---
CARDIOLOGY Reason for consult: Chest pain HPI/story at presentation: This is a pleasant 70-year-old male with past medical history as below present with complaints of chest discomfort and is currently being evaluated for this. Troponins negative, CT negative for PE. Cardiology consulted for further evaluation and management Past medical history: See below Allergies, Meds See chart Review of systems Review of Systems Constitutional: Negative for chills and fever. HENT: Negative for ear discharge and ear pain. Eyes: Negative for photophobia and discharge. Respiratory: Negative for cough, sputum production and stridor. Cardiovascular: Negative for chest pain and palpitations. Gastrointestinal: Negative for diarrhea and vomiting. Genitourinary: Negative for frequency. Musculoskeletal: Negative for myalgias. Skin: Negative for rash. Neurological: Negative for focal weakness and seizures. Endo/Heme/Allergies: Negative for polydipsia. Psychiatric/Behavioral: Negative for hallucinations. Vitals see chart PHYSICAL EXAMINATION GENERAL: The patient is alert and oriented*3 HEENT: Nonicteric sclerae, non traumatic HEART: Regular rate and rhythm with no murmurs LUNGS: Clear to auscultation bilaterally ABDOMEN: No acute issues, non tender GENITAL, RECTAL: deferred SKIN: No rash NEUROLOGIC: NFND EXTREMITIES: No edema ASSESSMENT CHEST PAIN Atypical symptoms of presentation Negative troponin EKG and CT chest Elevated D-dimer presentation, negative CT as above Remote history of cardiac catheterization negative HYPERTENSION HYPERLIPIDEMIA OBESITY DIABETES, SLEEP APNEA CORE MEASURES Aspirin statin beta-nahomy Entresto, 06/2025 OTHER MEDICAL PROBLEMS Hyponatremia PLAN 07/02/2025 atypical chest pain in setting of multiple risk factors. Proceed with stress testing and echocardiogram to further evaluate. CT chest was negative. Seen and examined 07/02/2025 at around 2300 07/03/2025 Stress test, echocardiogram within normal limits, being discharged home today, will follow-up with primary cardiology. Seen and examined 07/03/2025 at around 5 PM. ATTESTATION I was involved substantially in the care of this patient Number and complexity of problems addressed: 1 acute illness with systemic features Amount and or complexity of data Review of prior external note(s) from each unique source: 2+ Ordering of each unique test : 0 Review of the result(s) of each unique test: 2+ Assessment requiring an independent historian(s): No Independent interpretation of test performed by another MD/QHCP/appropriate source (not separately reported) : No Discussion of management or test interpretation with external MD/QHCP/appropriate source (not separately reported) : No Risk status (cardiac, billing related): Moderate Vitals/Labs Vital Signs Date Time Temp Pulse Resp B/P (MAP) Pulse Ox O2 Delivery O2 Flow Rate FiO2 07/03/25 16:17 98.4 91 20 128/75 92 Room Air 0.0 07/03/25 16:12 21 21 Laboratory Tests 07/03/25 02:36 Medications Current Medications Aspirin 325 mg ONCE ONCE PO Last administered on 07/02/25at 11:22; Start 07/02/25 at 11:30; Stop 07/02/25 at 11:31; Status DC Nitroglycerin 1 inch ONCE ONCE TD Last administered on 07/02/25at 11:22; Start 07/02/25 at 11:30; Stop 07/02/25 at 11:31; Status DC Acetaminophen 650 mg Q6H PRN PO; Start 07/02/25 at 11:30; Stop 08/01/25 at 11:29 Ondansetron HCl 4 mg Q6H PRN IVP Last administered on 07/02/25at 18:02; Start 07/02/25 at 11:30; Stop 08/01/25 at 11:29 Insulin Human Regular INSULIN SLIDING SCAL... ACHS SQ; Start 07/02/25 at 11:30; Stop 08/01/25 at 11:29 Sodium Chloride 1,000 ml @ 50 mls/hr Q20H IV Last administered on 07/03/25at 07:39; Start 07/02/25 at 11:30; Stop 08/01/25 at 11:29 Famotidine 20 mg BID PO Last administered on 07/03/25at 09:15; Start 07/02/25 at 21:00; Stop 08/01/25 at 20:59 Enoxaparin Sodium 40 mg DAILY SQ Last administered on 07/03/25at 09:13; Start 07/03/25 at 09:00; Stop 08/02/25 at 08:59 Aspirin 81 mg DAILY PO Last administered on 07/03/25at 09:13; Start 07/03/25 at 09:00; Stop 08/02/25 at 08:59 Magnesium Sulfate 50 ml @ 0 mls/hr PROTOCOL IV; Start 07/02/25 at 13:00; Stop 08/01/25 at 12:59 Metoprolol Tartrate 50 mg BID PO; Start 07/02/25 at 21:00; Stop 07/02/25 at 14:29; Status DC Sacubitril/ Valsartan 1 each BID PO Last administered on 07/03/25at 09:13; Start 07/02/25 at 21:00; Stop 08/01/25 at 20:59 Iohexol 35,000 mg STK-MED ONCE IV; Start 07/02/25 at 12:51; Stop 07/02/25 at 12:51; Status DC Morphine Sulfate 2 mg Q6H PRN IVP Last administered on 07/02/25at 18:03; Start 07/02/25 at 13:30; Stop 07/09/25 at 13:29 Atorvastatin Calcium 20 mg HS PO Last administered on 07/02/25at 20:32; Start 07/02/25 at 21:00; Stop 08/01/25 at 20:59 Citalopram Hydrobromide 20 mg DAILY PO Last administered on 07/03/25at 09:13; Start 07/03/25 at 09:00; Stop 08/02/25 at 08:59 Levothyroxine Sodium 88 mcg SYN PO Last administered on 07/03/25at 06:40; Start 07/03/25 at 06:30; Stop 08/02/25 at 06:29 Home Med Nortriptyline HCl 10MG 1 CAP HS PO; Start 07/02/25 at 21:00; Stop 08/01/25 at 20:59 Home Med Resmetirom (Rezdiffra) 100 MG DAILY PO; Start 07/03/25 at 09:00; Stop 08/02/25 at 08:59 Linagliptin 5 mg DAILY PO Last administered on 07/03/25at 09:13; Start 07/03/25 at 09:00; Stop 08/02/25 at 08:59 Metoprolol Tartrate 50 mg BID PO Last administered on 07/03/25at 09:14; Start 07/02/25 at 21:00; Stop 08/01/25 at 20:59 Ipratropium [place] 0.5 mg [id number] PRN IH; Start 07/03/25 at 02:30; Stop 08/02/25 at 02:29 Regadenoson 0.4 mg STK-MED ONCE IVP Last administered on 07/03/25at 08:27; Start 07/03/25 at 07:51; Stop 07/03/25 at 07:51; Status DC ABIOLA DUMONT MD Jul 03, 2025 17:06
--- NOTE | 2025-07-03 17:30 | PN ---
[facility] PROGRESS NOTE Date Patient Seen: Jul 03, 2025 Time of Visit: 1251 Supervising Physician: Dr. Wang Primary Care Physician: Joshua Piña. Attending: Rachael Hospitalist team Outpatient Specialists: Inpatient Consults: NATALIE, pulmonology team Dr. Brush, vat skimmer PROBLEM LIST: Chest pain, POA, r/o cardiac etiology Elevated D-dimer, POA, PE ruled out per CTA DVT ruled out per venous Doppler Morbid obesity, BMP 43.2 Suspected untreated obstructive sleep apnea, POA Hypertension, POA Diabetes mellitus type 2, POA Hyponatremia, POA INTERVAL HISTORY: 07/03 patient was seen and examined by bedside with no family present. Patient awake alert able to answer simple questions appropriately. Patient denies any chest pain or shortness of breadth. Denies any nausea vomiting or abdominal pain. Continue to follow recommendations from Cardiology. Patient's baseline ABG pH 7.4 CO238 PO2 65 bicarbonate 24.7. Patient to have a 6 minute walk prior to discharge to evaluate for home oxygen. Dispo per primary team Plan summary Recommend getting a baseline ABG Patient is having 6 minute walk prior to discharge if passes is cleared for discharge from a pulmonary standpoint Patient will need to follow up with [facility] within one week upon discharge for outpatient sleep study Dispo per primary team REVIEW OF SYSTEMS: 12 point ROS reviewed with patient. Pertinent positives mentioned above. Otherwise negative. PHYSICAL EXAM: GENERAL: alert, weak, awake oriented x 3 HEENT: EOMI, Sclera non icteric, moist mucosa NECK: Supple, no JVD, trachea midline LUNGS: Clear breath sounds bilaterally. No wheezes HEART: Regular rate and rhythm. Normal S1 and S2, without murmurs ABD: Abdomen soft, obese, nontender. Bowel sounds present EXT: No clubbing cyanosis or edema NEURO: Alert and oriented X3, follows commands Vital Signs (last 8hr) Date Time Temp Pulse Resp B/P (MAP) Pulse Ox O2 Delivery O2 Flow Rate FiO2 07/03/25 16:17 98.4 91 20 128/75 92 Room Air 0.0 07/03/25 16:12 85 18 21 96 20 21 07/03/25 12:04 96 Room Air* 0 21 07/03/25 12:03 98.2 82 16 128/78 96 Room Air 0.0 07/03/25 09:41 18 N/A Room Air 21 LABS: Hematology Labs: Test 07/03/25 02:36 07/02/25 08:46 Range/Units White Blood Count 6.7 # 4.8-10.8 K/uL Red Blood Count 3.76 L 4.50-6.20 MIL/uL Hemoglobin 11.4 L 14.0-18.0 g/dL Hematocrit 32.8 L 42-54 % Mean Corpuscular Volume 87.2 79-99 fL Mean Corpuscular Hemoglobin 30.3 27.0-33.0 pg Mean Corpuscular Hemoglobin Concent 34.8 32.0-36.0 g/dL Red Cell Distribution Width 12.7 11.0-15.5 % Platelet Count 163 130-400 K/uL Mean Platelet Volume 10.0 7.5-10.5 fL Nucleated Red Blood Cells 0.0 0.0-0.19 % Immature Granulocyte % (Auto) 0.4 0-1 % Neutrophils (%) (Auto) 66.8 40.0-77.0 % Lymphocytes (%) (Auto) 21.7 21.0-51.0 % Monocytes (%) (Auto) 8.3 3.0-13.0 % Eosinophils (%) (Auto) 2.1 0.0-8.0 % Basophils (%) (Auto) 0.7 0.0-5.0 % Neutrophils # (Auto) 6.1 1.8-7.7 K/uL Lymphocytes # (Auto) 2.0 1.0-4.8 K/uL Monocytes # (Auto) 0.8 0.1-1.0 K/uL Eosinophils # (Auto) 0.19 0.00-0.70 K/uL Basophils # (Auto) 0.06 0.00-0.20 K/uL Absolute Immature Granulocyte (auto 0.04 0-1 K/uL Erythrocyte Sedimentation Rate 44 H 0-20 MM/HR Chemistry Labs: Test 07/03/25 16:50 07/03/25 02:36 07/02/25 18:55 07/02/25 08:46 Range/Units Whole Blood Glucose 103 70-110 MG/DL Sodium Level 136 136-145 mmol/L Potassium Level 4.4 3.5-5.1 mmol/L Chloride Level 104 101-111 mmol/L Carbon Dioxide Level 28 21-32 mmol/L Blood Urea Nitrogen 13 7-18 mg/dL Creatinine 0.9 0.5-1.3 mg/dL Glomerular Filtration Rate Calc 92 >90 mL/min Random Glucose 116 H 70-105 mg/dL Total Calcium 8.5 8.5-10.1 mg/dL Total Bilirubin 0.4 # 0.2-1.0 mg/dL Aspartate Amino Transf (AST/SGOT) 29 10-37 U/L Alanine Aminotransferase (ALT/SGPT) 44 12-78 U/L Alkaline Phosphatase 137 H 50-136 U/L Total Protein 6.2 6.0-8.3 g/dL Albumin 2.7 L 3.5-5.0 g/dL Total Creatine Kinase 67 21-232 U/L Troponin I High Sensitivity 5.4 4-75 ng/L Hemoglobin A1c 7.1 H 4.0-6.0 % Estimated Average Glucose (eAG) 157 H 70-126 mg/dL Magnesium Level 1.60 L 1.80-2.40 mg/dL Direct Bilirubin 0.1 0.0-0.3 mg/dL Lactate Dehydrogenase 210 81-234 U/L C-Reactive Protein, Quantitative 13.90 H 0.5-3.0 mg/L B-Type Natriuretic Peptide 67 0-100 pg/mL Triglycerides Level 114 30-200 mg/dL Cholesterol Level 158 <200 mg/dL LDL Cholesterol 95 0-99 mg/dL HDL Cholesterol 44 29-71 mg/dL Procalcitonin < 0.05 L 0.05-0.5 ng/mL Thyroid Stimulating Hormone (TSH) 4.57 H 0.36-3.74 uIU/mL Coagulation Labs: Test 07/02/25 08:46 Range/Units D-Dimer Quantitative (PE/DVT) 1066 *H 0-500 ng/mL DIAGNOSTICS / RADIOLOGY RESULTS: na Case discussed with supervising physician plan of care agreed upon [facility] Jul 03, 2025 17:30
--- NOTE | 2025-07-03 18:09 | NUR ---
Pt. discharged as per MD orders. Pt. given admission discharge instructions and new scripts, verbalized understanding. All questions answered. Peripheral IV discontinued, manual pressure applied and hemostasis achieved. Pt. discharged via w/c. No acute distress noted.
== END 2025-07-03 17:45 | disposition home or self-care (01) ==
LOC: EDH 08:29 → INTOOBSV 11:23 → UNDOADMOB 11:23 → EDHIP 11:23
PROVIDERS: ADMIT Internal Medicine; ATTEND Internal Medicine
DX: R07.89 Other chest pain (principal); Z20.822 Contact with and (suspected) exposure to COVID-19; M54.9 Dorsalgia, unspecified; E11.9 Type 2 diabetes mellitus without complications; I10 Essential (primary) hypertension; E87.1 Hypo-osmolality and hyponatremia; G47.30 Sleep apnea, unspecified; E78.00 Pure hypercholesterolemia, unspecified; E66.01 Morbid (severe) obesity due to excess calories; Z79.82 Long term (current) use of aspirin; Z90.49 Acquired absence of other specified parts of digestive tract
CPT/HCPCS: 96374; 96361 ×5; 96375; 99285; 83036; 84443; 82550 ×3; 80076; 83615; 83735; 84484 ×3; 80061; 80048; 83880; 85025; 85378; 85651; 87804 ×2; 82948 ×5; 86140; 81001; 36415 ×2; 87635; 71045; 70450; 71270; 76705; 93970; 93005; 84145; 96372; 80053; 82803; 80305; 85027; 93017; 78452; 93306; 93356; 76376; 36600; 94664; G0378 ×3; J2270; J7030; J2405; Q9967; J1650; J2785; A9500 ×2; 94760